=== PATIENT | male | born 1945 | race Caucasian/White ===

== ENCOUNTER 2017-11-19 04:45 | Emergency (ER) | payer MEDICARE ==
--- NOTE | 2017-11-19 05:09 | ED ---
Dizziness - HPI Summary HPI Summary: This is scribe Eugenia Irving documenting for attending Dr. Antwon Steven MD. The patient is a 72 year old male presenting to the ED with complaints of dizziness that started yesterday morning at 0600. Going from vertical to horizontal is very hard for the patient, he explains by saying that there are a good five seconds where the room is completely spinning and he feels nauseous. He had meclizine left over from some vertigo about 2 years ago, it did nothing, got a new Rx from his doctor for it, took one at 0700 and 0300 this morning, and they did not work. Presently, he says he notices the dizziness but it only gets worse when he changes positions. PMHx heart problems, started Tx for HTN, last blood count was 09/16/17, taking metformin. I, Dr. Steven, personally performed the services described in this documentation as scribed in my presence and it is both accurate and complete. - History Of Current Complaint Chief Complaint: EDDizziness Stated Complaint: DIZZINESS Time Seen by Provider: 11/19/17 05:01 Hx Obtained From: Patient Onset/Duration: Still Present Timing: Intermittent Episode Lasting - 5-10 seconds Severity Initially: Severe - upon episode Severity Currently: Severe - upon episode Character: Room Spinning Aggravating Factor(s): Position Change - erect to supine, Change In Head Position Alleviating Factor(s): Other - keeping head vertical Associated Signs And Symptoms: Positive: Nausea. Negative: Vomiting, Unsteady Gait - Allergies/Home Medications Allergies/Adverse Reactions: Allergies Allergy/AdvReac Type Severity Reaction Status Date / Time atorvastatin Allergy Rash Verified 11/19/17 04:52 PMH/Surg Hx/FS Hx/Imm Hx Previously Healthy: No Endocrine/Hematology History: Denies: Hx Diabetes Cardiovascular History: Reports: Hx Coronary Artery Disease, Hx Hypertension - ON MEDICATION FOR, Other Cardiovascular Problems/Disorders - ATRIAL FLUTTER A FEW YEARS AGO Denies: Hx Pacemaker/ICD History: Denies: Hx Renal Disease Musculoskeletal History: Reports: Hx Arthritis - NECK Sensory History: Reports: Hx Contacts or Glasses - GLASSES Denies: Hx Hearing Aid Opthamlomology History: Reports: Hx Contacts or Glasses - GLASSES Neurological History: Reports: Other Neuro Impairments/Disorders - episodes of vertigo 2 years ago Psychiatric History: Denies: Hx Panic Disorder - Surgical History Surgery Procedure, Year, and Place: CSP - LAMINECTOMY -C6-7 ( [facility] – [place]). Rt FOOT - [facility] ACCIDENT. CARDIAC CATH - NO STENTS Hx Anesthesia Reactions: No Infectious Disease History: Yes Infectious Disease History: Denies: Traveled Outside the [place] in Last 30 Days - Family History Known Family History: Positive: Cardiac Disease - father Negative: Hypertension, Diabetes - Social History Occupation: Retired Lives: With Family Alcohol Use: Occasionally Alcohol Amount: 2-3 GLASSES WINE/DAY Substance Use Type: Reports: None Smoking Status (MU): Former Smoker Amount Used/How Often: 1 PPD X 10 YEARS Length of Time of Smoking/Using Tobacco: 10 YRS Have You Smoked in the Last Year: No Review of Systems Negative: Fever Positive: Nausea. Negative: Vomiting Neurological: Other - dizziness All Other Systems Reviewed And Are Negative: Yes Physical Exam - Summary Physical Exam Summary: Appearance: Well-appearing, Well-nourished, lying in bed comfortable, no ataxia Skin: Warm, dry, no obvious rash Eyes: sclera anicteric, no conjunctival pallor, no nystagmus, EOMI ENT: mucous membranes moist Neck: deferred Respiratory: No signs of respiratory distress Cardiovascular: Appears well perfused, pulses are nml Abdomen: deferred Musculoskeletal: Moving all 4 extremities without obvious discomfort Neurological: Awake and alert, mentation is normal, speech is fluent and appropriate, test of skew is nml, nml Rhomberg test Psychiatric: affect is normal, does not appear anxious or depressed Triage Information Reviewed: Yes Vital Signs On Initial Exam: Initial Vitals Temp Pulse Resp BP Pulse Ox 98.3 F 67 16 159/83 97 11/19/17 04:50 11/19/17 04:50 11/19/17 04:50 11/19/17 04:50 11/19/17 04:50 Vital Signs Reviewed: Yes Diagnostics - Vital Signs Vital Signs Temp Pulse Resp BP Pulse Ox 11/19/17 04:50 98.3 F 67 16 159/83 97 - Laboratory Lab Statement: Any lab studies that have been ordered have been reviewed, and results considered in the medical decision making process. Dizzy Course/Dx - Course Course Of Treatment: This is a 72-year-old man with acute vertigo. His history and physical are not consistent with a central cause of his vertigo. He has had this before. His symptoms were reproduced primarily by laying down and turning the head to the right, so Wilberto maneuver was performed with that in mind - Diagnoses Provider Diagnoses: Benign positional vertigo Discharge - Sign-Out/Discharge Documenting (check all that apply): Patient Departure - DC - Discharge Plan Condition: Fair Disposition: HOME Prescriptions: Prochlorperazine TAB* [Compazine Tab*] 10 mg PO Q8H PRN #14 tab PRN Reason: Dizziness Patient Education Materials: Benign Paroxysmal Positional Vertigo (ED) Referrals: Morris Christie MD [Primary Care Provider] - - Billing Disposition and Condition Condition: FAIR Disposition: Home
[2017-11-19] MEDS ORDERED: Prochlorperazine TAB* 10 MG PO ONE (05:20)
--- OUTSIDE RECORDS SUMMARY | 2017-11-19 05:21 | XMS REPORT ---
:1945 External Reference #:[id number] Author Organization [facility] Address [address] [place] [address] Phone [phone] Care Team Providers Name Role Phone Miranda Wolff Primary Care Physician Unavailable Payers Type Date Identification Numbers Payment Provider Subscriber Commercial Effective: Policy Number: [employer] George Birminghamter 2012 [id number] [employer] PayID: [id number] [address] [address] CH[place] Jason [id number] Medigap Part B Effective: Policy Number: [facility] George Birminghamter 2009 [id number] Expires: 2012 Group Name: BC/[place] [address] [address] PayID: [id number] CHAVA Jason [id number] Commercial Effective: Policy Number: [employer] George Birminghamter 2012 [id number] [employer] Expires: 2012 Group Number: [id number] [address] [address] PayID: [id number] CHAVA Jason [id number] Medigap Part B Expires: 2009 Policy Number: [facility] George Birminghamter [id number] Group Number: [id number] [address] [address] Group Name: BC/BS of [place] [id number] PayID: [id number] Problems Date Description Provider Status Onset: 09/18/2001 Gout Rupert SinclairNRennyPRennyCRenny Active Onset: 09/18/2001 Pure hypercholesterolemia Markos SinclairPHaroldo Active Onset: 09/18/2001 Benign secondary hypertension Manuel Sinclair Active Onset: 09/18/2001 Disorder of back Manuel Sinclair Active Onset: 02/24/2015 Hyperlipidemia Miranda Wolff, [employer] Active Family History Date Family Member(s) Problem(s) Comments : (2007) Father due to (age 81 Years) arrhythmia Father Heart Disease CONGENITAL HEART PROBLEMS, CORONARY HEART DISEASE WITH BYPASS. DEFIBRILLATOR AND PACEMAKER Mother Gallstones CHOLECYSTECTOMY 1996 Mother Alzheimer's Disease Maternal Grandfather Cancer, Colon : (age Maternal Grandfather due to MA 75 Years) Social History Type Date Description Comments Education Highest Level Completed associate degree Marital Status Lives With Alone Home Environment heating.apartments.natural gas Home Environment , hot water baseboard. 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 ETOH Use Rarely consumes alcohol Smoking Patient is a former smoker Allergies, Adverse Reactions, Alerts Date Description Reaction Status Severity Comments 06/28/2014 Generic Lipitor rash active Medications Medication Date Status Form Strength Qnty SIG Indications Ordering Provider Metformin HCL ER 08/05 Active Tablets 1000mg 90tab 1 tab by E11.9 Morris (Mod) ER 24HR s mouth every [place], day in in MD the morning Metoprolol 01/03 Active Tablets 100mg 60tab Take One Morris Tartrate s Tablet By Deisy Christie Twice MD A Day Instead Of Atenolol Dilt-XR 06/21 Active Caps ER 180mg 90cap Take One Betty 24HR s Capsule By Deisy Aquino Every M.D., R.D. Day Nitrostat 02/24 Active Tablets 0.4mg 30tab 1 tab Sub s sublingual Jason, as needed [employer] for chest pain Pravastatin 06/28 Active Tablets 40mg 90tab Take One E78.5 Miranda Sodium s Tablet By Jason, Mouth AT [employer] Bedtime Meclizine HCL 04/23 Active Tablets 25mg 30tab 1 tablet H81.10 Miranda s three times Jason, a day as [employer] needed dizziness Aspirin 06/25 Active Tablets 81mg 100ta one po qd to 427.9 bs prevent K.W. heart attack Timothy, and stroke Joes Allopurinol 09/18 Active Tablets 300mg 90tab Take One Morris s Tablet By Shahnaz Mouth Every MD Day Altace Active Capsules 5mg 90cap take one Morris / s capsule by Shahnaz, mouth every MD day Benzonatate 01/12 Hx Capsules 100mg 30cap take 1 or 2 R05 Miranda s capsules by Jason, - mouth three [employer] 03/16 times a day as needed for coughing Metformin HCL 01/12 Hx Tablets 500mg 60tab Take One E11.9 Miranda s Tablet By Jason, - Mouth Twice [employer] 08/05 A /2017 Hydrocodone-Acet 09/21 Hx Tablets 5-325mg 30tab 1 by mouth Miranda aminophen s q4 - 6 hours Jason, - as needed [employer] 12/17 Cyclobenzaprine 09/21 Hx Tablets 5mg 30tab 1-2 by mouth M54.5 Miranda HCL /2015 s three times Jason, - a day for [employer] 12/17 muscle spasm, may cause drowsiness Lidocaine 09/21 Hx Patches 5% 10uni apply patch M54.5 Miranda ts to skin on Jason, - shoulder for [employer] 12/17 12 hours then remove for 12 hours. Polymyxin B 08/19 Hx Solution 48734-3.1 10ml 1gtt in both H10.89 Miranda Sulfate/Trimetho Unit/ML-% eyes every 4 Jason, prim Sulfate - hours while [employer] 09/21 awake more than 6 doses/day Cephalexin 08/19 Hx Tablets 500mg 14tab take 1 R05 s tablet by Jason, - mouth twice [employer] 09/21 a day x days Guaifenesin-Code 03/14 Hx Syrup 100-10mg/ 240ml 1-2 teaspoon R05 5ML every 4-6 Jason, - hours as [employer] 09/21 needed Xanax 05/09 Hx Tablets 0.5mg 20twe 1/2-1 tab by 724.5 nty mouth q hs Jason, - prn insomnia [facility] 12/17 Cephalexin 05/09 Hx Tablets 500mg 14tab take 1 682.2 s tablet by Jason, - mouth twice [facility] 02/24 a day x days Gabapentin 05/09 Hx Capsules 100mg 30cap Take One 724.5 s Capsule By Jason, - Mouth AT [facility] 02/24 Bedtime Hydrocodone-Acet 02/11 Hx Tablets 5-325mg 20twe 1 po hs prn 723.1 Miranda amino nty pain Wilmer Wolff [facility] 02/24 Diltiazem HCL ER 09/24 Hx Caps ER 180mg 90cap 1 by mouth 24HR s every day Wilmer Aquino M.D., R.D. 06/21 Nitrostat 03/06 Hx Tablets 0.4mg 50tab Place One Sub s Tablet Under K.W. - The Tongue Timothy, 12/17 Every 5 M.D. /2016 Minutes For Up To 3 Doses as Needed For Chest Pain. If Chest Pain Still Persists Co Hydrocodone/Acet 09/08 Hx Tablets 5-325mg 20twe 1-2 po q6 723.1 Miranda aminophen nty hrs prn pain Wilmer Wolff [facility] 02/11 Viagra 04/12 Hx Tablets 100mg 2SG take one 414.01 half (04/12) Kenia, - tablet(s) Jose, R.D. 02/24 by mouth /2014 before intercourse Meclizine HCL 12/12 Hx Tablets 25mg 30tab 1 tablet tid 386.11 Miranda s prn Jason, - dizziness [facility] 04/12 Hydrocodone/Acet 06/13 Hx Tablets 5-325mg 20twe 1-2 po q6 723.1 Joselyn aminophen nty hrs prn pain K.W. - Timothy, 06/13 M.D. Cyclobenzaprine 06/13 Hx Tablets 5mg 30tab 1-2 po tid 723.1 Miranda HCL s for muscle Jason, - spasm, august [facility] 04/12 drowsiness Valacyclovir HCL 04/24 Hx Tablets 500mg 50tab 1 tabs po 053.29 Daina s every 8 Green, - hours for7 PATHOLOGY TECHNICIAN Zovirax 04/24 Hx Cream 5% 2gram apply to 053.29 s affected Green, - area 3 times PATHOLOGY TECHNICIAN 02/24 a day for days Percocet 08/05 Hx Tablets 7.5-325M 50tab one to two 723.1 s po qid prn K.W. - severe pain Timothy, 11/25 M.D. Zithromax Z-Gavin 03/13 Hx Tablets 250mg 6tabs Two PO qd 786.2 Today And K.W. - Then One PO Timothy, 06/25 qd For 4 M.D. /2008 Days Claritin-D 12 03/13 Hx Tablets 5-120mg 60tab one po bid 786.2 ER 12HR s prn cough, K.W. - post nasal Timothy, 06/25 drip M.D. Lipitor 01/17 Hx Tablets 40mg 90tab Take One Miranda s Tablet By Jason, - Mouth AT [facility] 02/24 Bedtime And /2014 Recheck Cholesterol Profile Every 6 Months Atenolol 11/03 Hx Tablets 100mg 90tab Take One Miranda s Tablet By Jason, - Mouth Every [facility] /2016 Nitroglycerin SL 05/15 Hx 0.4mg 50uni one sl q 5 I20.9 ts min x 3 prn K.W. - chest pain Timothy, 02/24 M.D. Elocon 05/15 Hx 0.1% 15g Apply Thin 709.9 Film Once K.W. - Daily For Up Timothy, 11/02 To 2 Weeks, M.D. Then Twice Per Week as Needed Lipitor 09/18 Hx Tablets 20mg 45tab one and one s half qd K.W. - Timothy, 01/17 M.D. Atenolol 09/18 Hx 50mg 60uni one po bid ts K.W. - Timothy, 11/03 M.D. Diltiazem CD 09/18 Hx Caps ER 180mg 90cap take one 24HR s capsule by Derrick Umanzor, - mouth every M.D. Immunizations CPT Code Status Date Vaccine Lot # [id number] Given 02/24/2015 Prevnar-13 Pneumococcal Conjugate Vaccine [id number] 64636 Given 02/24/2015 Influenza Vaccine High Dose PF [id number] 60243 Given 06/13/2012 Zoster Vaccine [id number] 15846 Given 04/12/2012 Pneumovax 23 (PPSV23) 65+ years or high risk 2 to [id number] 66 year old [address] Refused 12/17/2016 Influenza Virus Vaccine, Quadrivalent, 3 Yr > Quad , Preserv Free Vital Signs Date Vital Result Comment 11/04/2017 Weight 205.00 lb Weight in kg's 92.988 BP Systolic 100 mmHg BP Diastolic 70 mmHg Heart Rate 56 /min Body Temperature 97.1 F Respiratory Rate 16 /min 08/05/2017 Weight 208.00 lb Weight in kg's 94.349 BP Systolic 124 mmHg BP Diastolic 74 mmHg Heart Rate 52 /min Body Temperature 96.1 F Respiratory Rate 18 /min O2 % BldC Oximetry 99 % 05/05/2017 Weight 205.00 lb Weight in kg's 92.988 BP Systolic 120 mmHg BP Diastolic 62 mmHg Heart Rate 52 /min Body Temperature 97.3 F Respiratory Rate 16 /min O2 % BldC Oximetry 98 % 03/16/2017 Weight 200.00 lb Weight in kg's 90.720 BP Systolic 110 mmHg BP Diastolic 68 mmHg Heart Rate 52 /min Body Temperature 96.9 F Height 68 inches 5'8" BMI (Body Mass Index) 30.4 kg/m2 O2 % BldC Oximetry 97 % 01/12/2017 Weight 209.00 lb Weight in kg's 94.802 BP Systolic 110 mmHg BP Diastolic 68 mmHg Heart Rate 64 /min Body Temperature 97.3 F Respiratory Rate 16 /min 12/17/2016 Weight 209.00 lb Weight in kg's 94.802 BP Systolic 124 mmHg BP Diastolic 76 mmHg Heart Rate 50 /min Body Temperature 97.6 F Respiratory Rate 16 /min O2 % BldC Oximetry 98 % 09/22/2015 Weight 211.00 lb Weight in kg's 95.710 BP Systolic 160 mmHg BP Diastolic 80 mmHg Heart Rate 52 /min 08/20/2015 Weight 216.00 lb Weight in kg's 97.978 BP Systolic 140 mmHg BP Diastolic 80 mmHg Heart Rate 50 /min Body Temperature 97.4 F O2 % BldC Oximetry 96 % on Ra 07/29/2015 Weight 210.00 lb Weight in kg's 95.256 BP Systolic 130 mmHg BP Diastolic 80 mmHg Heart Rate 52 /min Body Temperature 98.2 F O2 % BldC Oximetry 98 % 03/14/2015 Weight 210.00 lb Weight in kg's 95.256 BP Systolic 120 mmHg BP Diastolic 68 mmHg Heart Rate 68 /min Body Temperature 97.5 F 02/24/2015 Weight 210.00 lb Weight in kg's 95.256 BP Systolic 106 mmHg BP Diastolic 62 mmHg Heart Rate 72 /min Height 69 inches 5'9" BMI (Body Mass Index) 31.0 kg/m2 06/28/2014 Weight 212.00 lb Weight in kg's 96.163 BP Systolic 100 mmHg BP Diastolic 60 mmHg Heart Rate 52 /min 05/09/2014 Weight 212.00 lb Weight in kg's 96.163 BP Systolic 132 mmHg BP Diastolic 72 mmHg Heart Rate 60 /min Body Temperature 97.1 F 02/11/2014 Weight 217.00 lb Weight in kg's 98.431 BP Systolic 130 mmHg BP Diastolic 64 mmHg Heart Rate 56 /min 11/06/2013 Weight 219.00 lb Weight in kg's 99.338 BP Systolic 140 mmHg BP Diastolic 70 mmHg Heart Rate 52 /min O2 % BldC Oximetry 98 % 04/23/2013 Weight 218.00 lb Weight in kg's 98.885 BP Systolic 128 mmHg BP Diastolic 68 mmHg Heart Rate 58 /min Body Temperature 97.1 F O2 % BldC Oximetry 98 % 10/20/2012 Weight 199.00 lb Weight in kg's 90.266 BP Systolic 106 mmHg BP Diastolic 80 mmHg Heart Rate 60 /min Body Temperature 97.3 F 06/13/2012 Weight 194.00 lb Weight in kg's 87.998 BP Systolic 104 mmHg BP Diastolic 64 mmHg Heart Rate 52 /min Height 69 inches 5'9" BMI (Body Mass Index) 28.6 kg/m2 Right Visual Acuity Distance 20/50 Left Visual Acuity Distance 20/50 Both Visual Acuity Distance 20/40 04/12/2012 Weight 211.00 lb Weight in kg's 95.710 BP Systolic 102 mmHg BP Diastolic 70 mmHg Heart Rate 50 /min 03/22/2012 Weight 215.00 lb Weight in kg's 97.524 BP Systolic 122 mmHg BP Diastolic 84 mmHg Heart Rate 56 /min Body Temperature 96.3 F 11/15/2011 Weight 215.00 lb Weight in kg's 97.524 BP Systolic 140 mmHg BP Diastolic 80 mmHg Heart Rate 60 /min 06/14/2011 Weight 216.00 lb Weight in kg's 97.978 BP Systolic 124 mmHg BP Diastolic 64 mmHg Heart Rate 44 /min Body Temperature 98.0 F 06/04/2011 Weight 224.00 lb Weight in kg's 101.606 BP Systolic 132 mmHg BP Diastolic 60 mmHg Heart Rate 60 /min Body Temperature 98.0 F 04/24/2010 Weight 220.00 lb Weight in kg's 99.792 BP Systolic 122 mmHg BP Diastolic 72 mmHg Heart Rate 52 /min Body Temperature 95.7 F 11/25/2008 Weight 220.00 lb Weight in kg's 99.792 BP Systolic 124 mmHg BP Diastolic 70 mmHg Heart Rate 60 /min 08/05/2008 Weight 218.00 lb Weight in kg's 98.885 BP Systolic 132 mmHg BP Diastolic 60 mmHg Heart Rate 60 /min 06/25/2008 Weight 218.00 lb Weight in kg's 98.885 BP Systolic 118 mmHg BP Diastolic 66 mmHg Heart Rate 52 /min Height 69.25 inches 5'9.25" BMI (Body Mass Index) 32.0 kg/m2 03/13/2008 Weight 219.00 lb Weight in kg's 99.338 BP Systolic 108 mmHg BP Diastolic 60 mmHg Heart Rate 56 /min Body Temperature 97.1 F Oral Height 69.5 inches 5'9.50" BMI (Body Mass Index) 31.9 kg/m2 06/08/2006 Weight 223.00 lb Weight in kg's 101.153 BP Systolic 130 mmHg BP Diastolic 68 mmHg Heart Rate 68 /min Height 69.5 inches 5'9.50" BMI (Body Mass Index) 32.5 kg/m2 05/31/2006 BP Systolic 130 mmHg BP Diastolic 68 mmHg Heart Rate 64 /min Body Temperature 97.9 F Oral Height 69.5 inches 5'9.50" 05/23/2006 Weight 219.50 lb Weight in kg's 99.565 BP Systolic 110 mmHg BP Diastolic 68 mmHg Heart Rate 64 /min Height 69.5 inches 5'9.50" BMI (Body Mass Index) 31.9 kg/m2 02/23/2005 Weight 217.00 lb Weight in kg's 98.431 BP Systolic 120 mmHg BP Diastolic 80 mmHg Heart Rate 54 /min Height 68.25 inches 5'8.25" BMI (Body Mass Index) 32.7 kg/m2 06/09/2004 Weight 218.00 lb Weight in kg's 98.885 BP Systolic 128 mmHg BP Diastolic 72 mmHg Heart Rate 64 /min 11/04/2003 Weight 210.00 lb Weight in kg's 95.256 BP Systolic 132 mmHg BP Diastolic 73 mmHg Heart Rate 63 /min 03/19/2003 Weight 220.00 lb Weight in kg's 99.792 BP Systolic 120 mmHg BP Diastolic 62 mmHg Heart Rate 56 /min 11/20/2002 Weight 214.00 lb Weight in kg's 97.070 BP Systolic 110 mmHg BP Diastolic 70 mmHg Heart Rate 58 /min Height 70 inches BMI (Body Mass Index) 30.7 kg/m2 11/02/2002 Weight 215.00 lb Weight in kg's 97.524 BP Systolic 138 mmHg BP Diastolic 76 mmHg Heart Rate 62 /min 05/15/2002 Weight 223.00 lb Weight in kg's 101.2 BP Systolic 132 mmHg BP Diastolic 80 mmHg Heart Rate 64 /min Respiratory Rate 18 /min Height 69 inches BMI (Body Mass Index) 32.9 kg/m2 09/18/2001 Weight 214.00 lb BP Systolic 150 mmHg BP Diastolic 80 mmHg Heart Rate 80 /min Respiratory Rate 18 /min Results Test Date Test Result H/L Range Note Laboratory test 10/26/2017 Hemoglobin A1c (Glyco 6.8 % High 4.0-5.6 1 finding HGB) Lipid Profile 10/26/2017 Triglycerides 89 mg/dL 2 (Trig/Chol/HDL) Cholesterol 156 mg/dL 3 HDL Cholesterol 40.3 mg/dL 4 LDL Cholesterol 98 mg/dL 5 CBC Auto Diff 10/26/2017 White Blood Count 8.3 10^3/uL 3.5-10.8 Red Blood Count 4.47 10^6/uL 4.00-5.40 Hemoglobin 13.6 g/dL Low 14.0-18.0 Hematocrit 39 % Low 42-52 Mean Corpuscular Volume 87 fL 80-94 Mean Corpuscular Hemoglobin 30 pg 27-31 Mean Corpuscular HGB Conc 35 g/dL 31-36 Red Cell Distribution Width 14 % 10.5-15 Platelet Count 217 10^3/uL 150-450 Mean Platelet Volume 7.4 um3 7.4-10.4 Abs Neutrophils 5.1 10^3/uL 1.5-7.7 Abs Lymphocytes 2.4 10^3/uL 1.0-4.8 Abs Monocytes 0.6 10^3/uL 0-0.8 Abs Eosinophils 0.1 10^3/uL 0-0.6 Abs Basophils 0.1 10^3/uL 0-0.2 Abs Nucleated RBC 0 10^3/uL Granulocyte % 61.1 % 38-83 Lymphocyte % 28.7 % 25-47 Monocyte % 7.6 % High 0-7 Eosinophil % 1.7 % 0-6 Basophil % 0.9 % 0-2 Nucleated Red Blood Cells % 0.1 Comp Metabolic Panel 10/26/2017 Sodium 138 mmol/L 135-145 Potassium 4.6 mmol/L 3.5-5.0 Chloride 104 mmol/L 101-111 Co2 Carbon Dioxide 26 mmol/L 22-32 Anion Gap 8 mmol/L 2-11 Glucose 138 mg/dL High 70-100 Blood Urea Nitrogen 18 mg/dL 6-24 Creatinine 1.02 mg/dL 0.67-1.17 BUN/Creatinine Ratio 17.6 8-20 Calcium 9.3 mg/dL 8.6-10.3 Total Protein 6.9 g/dL 6.4-8.9 Albumin 4.5 g/dL 3.2-5.2 Globulin 2.4 g/dL 2-4 Albumin/Globulin Ratio 1.9 1-3 Total Bilirubin 0.50 mg/dL 0.2-1.0 Alkaline Phosphatase 51 U/L 34-104 Alt 16 U/L 7-52 Ast 13 U/L 13-39 Egfr Non- 72.2 >60 Egfr 87.4 >60 6 CBC Auto Diff 07/29/2017 White Blood Count 8.7 10^3/uL 3.5-10.8 Red Blood Count 4.57 10^6/uL 4.0-5.4 Hemoglobin 13.9 g/dL Low 14.0-18.0 Hematocrit 40 % Low 42-52 Mean Corpuscular Volume 87 fL 80-94 Mean Corpuscular Hemoglobin 30 pg 27-31 Mean Corpuscular HGB Conc 35 g/dL 31-36 Red Cell Distribution Width 14 % 10.5-15 Platelet Count 217 10^3/uL 150-450 Mean Platelet Volume 7.5 um3 7.4-10.4 Abs Neutrophils 5.2 10^3/uL 1.5-7.7 Abs Lymphocytes 2.7 10^3/uL 1.0-4.8 Abs Monocytes 0.6 10^3/uL 0-0.8 Abs Eosinophils 0.2 10^3/uL 0-0.6 Abs Basophils 0.1 10^3/uL 0-0.2 Abs Nucleated RBC 0 10^3/uL Granulocyte % 59.1 % 38-83 Lymphocyte % 30.9 % 25-47 Monocyte % 7.2 % High 0-7 Eosinophil % 1.8 % 0-6 Basophil % 1.0 % 0-2 Nucleated Red Blood Cells % 0.2 Comp Metabolic Panel 07/29/2017 Sodium 138 mmol/L Low 139-145 Potassium 4.4 mmol/L 3.5-5.0 Chloride 105 mmol/L 101-111 Co2 Carbon Dioxide 26 mmol/L 22-32 Anion Gap 7 mmol/L 2-11 Glucose 158 mg/dL High 70-100 Blood Urea Nitrogen 19 mg/dL 6-24 Creatinine 1.02 mg/dL 0.67-1.17 BUN/Creatinine Ratio 18.6 8-20 Calcium 9.2 mg/dL 8.6-10.3 Total Protein 6.7 g/dL 6.4-8.9 Albumin 4.2 g/dL 3.2-5.2 Globulin 2.5 g/dL 2-4 Albumin/Globulin Ratio 1.7 1-3 Total Bilirubin 0.40 mg/dL 0.2-1.0 Alkaline Phosphatase 48 U/L 34-104 Alt 17 U/L 7-52 Ast 13 U/L 13-39 Egfr Non- 72.2 >60 Egfr 92.9 >60 7 Lipid Profile (Trig/Chol/HDL) 07/29/2017 Triglycerides 88 mg/dL 8 Cholesterol 153 mg/dL 9 HDL Cholesterol 40.8 mg/dL 10 LDL Cholesterol 95 mg/dL 11 Laboratory test finding 07/29/2017 Hemoglobin A1c (Glyco 7.1 % High 4.0- 5.6 12 HGB) Laboratory test finding 03/11/2017 Hemoglobin A1c (Glyco 6.6 % High 4.0- 5.6 13 HGB) Lipid Profile 03/11/2017 Triglycerides 102 mg/dL 14 (Trig/Chol/HDL) Cholesterol 166 mg/dL 15 HDL Cholesterol 40.8 mg/dL 16 LDL Cholesterol 105 mg/dL 17 Comp Metabolic Panel 03/11/2017 Sodium 135 mmol/L 133-145 Potassium 4.2 mmol/L 3.5-5.0 Chloride 103 mmol/L 101-111 Co2 Carbon Dioxide 27 mmol/L 22-32 Anion Gap 5 mmol/L 2-11 Glucose 148 mg/dL High 70-100 Blood Urea Nitrogen 15 mg/dL 6-24 Creatinine 1.01 mg/dL 0.67-1.17 BUN/Creatinine Ratio 14.9 8-20 Calcium 8.9 mg/dL 8.6-10.3 Total Protein 7.0 g/dL 6.4-8.9 Albumin 4.4 g/dL 3.2-5.2 Globulin 2.6 g/dL 2-4 Albumin/Globulin Ratio 1.7 1-3 Total Bilirubin 0.60 mg/dL 0.2-1.0 Alkaline Phosphatase 51 U/L 34-104 Alt 17 U/L 7-52 Ast 16 U/L 13-39 Egfr Non- 73.0 >60 Egfr 93.9 >60 18 CBC Auto Diff 03/11/2017 White Blood Count 10.3 10^3/uL 3.5-10.8 Red Blood Count 4.65 10^6/uL 4.0-5.4 Hemoglobin 13.7 g/dL Low 14.0-18.0 Hematocrit 41 % Low 42-52 Mean Corpuscular Volume 87 fL 80-94 Mean Corpuscular Hemoglobin 30 pg 27-31 Mean Corpuscular HGB Conc 34 g/dL 31-36 Red Cell Distribution Width 14 % 10.5-15 Platelet Count 241 10^3/uL 150-450 Mean Platelet Volume 8 um3 7.4-10.4 Abs Neutrophils 6.4 10^3/uL 1.5-7.7 Abs Lymphocytes 2.9 10^3/uL 1.0-4.8 Abs Monocytes 0.7 10^3/uL 0-0.8 Abs Eosinophils 0.2 10^3/uL 0-0.6 Abs Basophils 0.1 10^3/uL 0-0.2 Abs Nucleated RBC 0.01 10^3/uL Granulocyte % 62.3 % 38-83 Lymphocyte % 28.4 % 25-47 Monocyte % 6.8 % 1-9 Eosinophil % 1.5 % 0-6 Basophil % 1.0 % 0-2 Nucleated Red Blood Cells % 0.1 Urine DIP 12/17/2016 Leukocytes neg Neg Urine Nitrites neg Neg Urobilinogen norm Norm Total Protein, Urine trace Neg Urine pH 5.0 5-6 Urine Blood neg Neg Specific [place] 1.020 1.01-1.02 Urine Ketones trace Neg Urine Bilirubin neg Neg Urine Glucose 250 High Norm CBC Auto Diff 12/17/2016 White Blood Count 11.4 10^3/uL High 3.5-10.8 Red Blood Count 4.95 10^6/uL 4.0-5.4 Hemoglobin 14.7 g/dL 14.0-18.0 Hematocrit 43 % 42-52 Mean Corpuscular Volume 86 fL 80-94 Mean Corpuscular Hemoglobin 30 pg 27-31 Mean Corpuscular HGB Conc 34 g/dL 31-36 Red Cell Distribution Width 14 % 10.5-15 Platelet Count 246 10^3/uL 150-450 Mean Platelet Volume 8 um3 7.4-10.4 Abs Neutrophils 7.2 10^3/uL 1.5-7.7 Abs Lymphocytes 3.0 10^3/uL 1.0-4.8 Abs Monocytes 1.0 10^3/uL High 0-0.8 Abs Eosinophils 0.2 10^3/uL 0-0.6 Abs Basophils 0.1 10^3/uL 0-0.2 Abs Nucleated RBC 0.01 10^3/uL Granulocyte % 62.7 % 38-83 Lymphocyte % 26.1 % 25-47 Monocyte % 8.4 % 1-9 Eosinophil % 2.2 % 0-6 Basophil % 0.6 % 0-2 Nucleated Red Blood Cells % 0.1 Comp Metabolic Panel 12/17/2016 Sodium 134 mmol/L 133-145 Potassium 4.8 mmol/L 3.5-5.0 Chloride 102 mmol/L 101-111 Co2 Carbon Dioxide 25 mmol/L 22-32 Anion Gap 7 mmol/L 2-11 Glucose 185 mg/dL High 70-100 Blood Urea Nitrogen 21 mg/dL 6-24 Creatinine 1.04 mg/dL 0.67-1.17 BUN/Creatinine Ratio 20.2 High 8-20 Calcium 9.3 mg/dL 8.6-10.3 Total Protein 7.4 g/dL 6.4-8.9 Albumin 4.5 g/dL 3.2-5.2 Globulin 2.9 g/dL 2-4 Albumin/Globulin Ratio 1.6 1-3 Total Bilirubin 0.60 mg/dL 0.2-1.0 Alkaline Phosphatase 58 U/L 34-104 Alt 23 U/L 7-52 Ast 19 U/L 13-39 Egfr Non- 70.8 >60 Egfr 91.1 >60 19 Laboratory test 12/17/2016 Hemoglobin A1c (Glyco 7.9 % High Less than 6.0 20 finding HGB) Lipid Profile 12/17/2016 Triglycerides 117 mg/dL 21 (Trig/Chol/HDL) Cholesterol 181 mg/dL 22 HDL Cholesterol 43.4 mg/dL 23 LDL Cholesterol 114 mg/dL 24 Laboratory test finding 12/17/2016 Hepatitis C Antibody Nonreactive Nonreactive 25 PSA Screening 2.553 ng/mL 0-4.000 26 Urine Microalbumin Random 12/17/2016 Urine Creatinine 219.95 mg/dL Ur Microalbumin (mg/L) 55.4 mg/L Urine Microalbumin/Creatinine 25.1 ug/mg <31 CBC Auto Diff 07/29/2015 White Blood Count 11.4 10^3/uL High 3.5-10.8 Red Blood Count 4.81 10^6/uL 4.0-5.4 Hemoglobin 14.2 g/dL 14.0-18.0 Hematocrit 42 % 42-52 Mean Corpuscular Volume 88 fL 80-94 Mean Corpuscular Hemoglobin 30 pg 27-31 Mean Corpuscular HGB Conc 34 g/dL 31-36 Red Cell Distribution Width 14 % 10.5-15 Platelet Count 233 10^3/uL 150-450 Mean Platelet Volume 8 um3 7.4-10.4 Abs Neutrophils 7.4 10^3/uL 1.5-7.7 Abs Lymphocytes 3.0 10^3/uL 1.0-4.8 Abs Monocytes 0.8 10^3/uL 0-0.8 Abs Eosinophils 0.2 10^3/uL 0-0.6 Abs Basophils 0.1 10^3/uL 0-0.2 Abs Nucleated RBC 0.02 10^3/uL Granulocyte % 64.4 % 38-83 Lymphocyte % 26.0 % 25-47 Monocyte % 6.8 % 1-9 Eosinophil % 1.8 % 0-6 Basophil % 1.0 % 0-2 Nucleated Red Blood Cells % 0.2 Comp Metabolic Panel 07/29/2015 Sodium 137 mmol/L 133-145 Potassium 4.2 mmol/L 3.5-5.0 Chloride 104 mmol/L 101-111 Co2 Carbon Dioxide 27 mmol/L 22-32 Anion Gap 6 mmol/L 2-11 Glucose 116 mg/dL High 70-100 Blood Urea Nitrogen 18 mg/dL 6-24 Creatinine 0.98 mg/dL 0.67-1.17 BUN/Creatinine Ratio 18.4 8-20 Calcium 9.2 mg/dL 8.6-10.3 Total Protein 7.0 g/dL 6.4-8.9 Albumin 4.6 g/dL 3.2-5.2 Globulin 2.4 g/dL 2-4 Albumin/Globulin Ratio 1.9 1-3 Total Bilirubin 0.70 mg/dL 0.2-1.0 Alkaline Phosphatase 56 U/L 34-104 Alt 20 U/L 7-52 Ast 16 U/L 13-39 Egfr Non- 76.1 >60 Egfr 97.8 >60 27 Laboratory test finding 07/29/2015 TSH (Thyroid Stim Horm) 0.72 ?IU/mL 0.34-5.60 28 Hemoglobin A1c (Glyco HGB) 6.5 % High Less than 6.0 29 Laboratory test finding 02/24/2015 PSA Screening 2.066 ng/mL 0-4.000 30 Lipid Profile (Trig/Chol/HDL) 02/24/2015 Triglycerides 90 mg/dL 31 Cholesterol 151 mg/dL 32 HDL Cholesterol 38.4 mg/dL 33 LDL Cholesterol 95 mg/dL 34 Laboratory test 02/24/2015 Hemoglobin A1c 6.8 % High Less than 6.0 35 finding CBC Auto Diff 01/30/2015 White Blood Count 9.0 10^3/uL 4.8-10.8 Red Blood Count 4.59 10^6/uL 4.0-5.4 Hemoglobin 13.8 g/dL Low 14.0-18.0 Hematocrit 41 % Low 42-52 Mean Corpuscular Volume 89 fL 80-94 Mean Corpuscular Hemoglobin 30 pg 27-31 Mean Corpuscular HGB Conc 34 g/dL 31-36 Red Cell Distribution Width 14 % 10.5-15 Platelet Count 221 10^3/uL 150-450 Mean Platelet Volume 8 um3 7.4-10.4 Abs Neutrophils 6.2 10^3/uL 1.5-7.7 Abs Lymphocytes 1.9 10^3/uL 1.0-4.8 Abs Monocytes 0.8 10^3/uL 0-0.8 Abs Eosinophils 0.1 10^3/uL 0-0.6 Abs Basophils 0.1 10^3/uL 0-0.2 Abs Nucleated RBC 0.02 10^3/uL Granulocyte % 68.3 % 38-83 Lymphocyte % 21.1 % Low 25-47 Monocyte % 8.4 % 1-9 Eosinophil % 1.4 % 0-6 Basophil % 0.8 % 0-2 Nucleated Red Blood Cells % 0.2 Inr/Protime 01/30/2015 Inr 0.93 0.78-1.07 Laboratory test finding 01/30/2015 Partial Thrombo Time 27.3 seconds 26.0 -36.3 PTT B-Type Natriuretic Peptide BNP 41 pg/mL 36 Comp Metabolic Panel 01/30/2015 Sodium 135 mmol/L 133-145 Potassium 4.4 mmol/L 3.5-5.0 Chloride 105 mmol/L 101-111 Co2 Carbon Dioxide 23 mmol/L 22-32 Anion Gap 7 mmol/L 2-11 Glucose 171 mg/dL High 70-100 Blood Urea Nitrogen 18 mg/dL 6-24 Creatinine 0.98 mg/dL 0.67-1.17 BUN/Creatinine Ratio 18.4 8-20 Calcium 9.2 mg/dL 8.6-10.3 Total Protein 7.0 g/dL 6.4-8.9 Albumin 4.2 g/dL 3.2-5.2 Globulin 2.8 g/dL 2-4 Albumin/Globulin Ratio 1.5 1-3 Total Bilirubin 0.50 mg/dL 0.2-1.0 Alkaline Phosphatase 54 U/L 34-104 Alt 20 U/L 7-52 Ast 15 U/L 13-39 Egfr Non- 76.1 >60 Egfr 97.8 >60 37 Laboratory test finding 01/30/2015 Magnesium 1.8 mg/dL Low 1.9-2.7 Lipase 10 U/L Low 11.0-82.0 C Reactive Protein 3.79 mg/L < 5.00 38 Troponin I 0.00 ng/mL <0.03 39 TSH (Thyroid Stimulating Horm) 1.02 ?IU/mL 0.34-5.60 Urine DIP 06/13/2012 Leukocytes NEG Neg Urine Nitrites NEG Neg Urine pH 5 5-6 Total Protein, Urine NEG Neg Urine Glucose NORM Norm Urine Ketones SMALL Neg Urobilinogen NORM Norm Urine Bilirubin NEG Neg Urine Blood TRACE Neg Specific [place] 1.02 1.01-1.02 Laboratory test finding 06/12/2012 Hemoglobin A1c 5.4 % Less than 6.0 40 Statin 06/12/2012 Ast 18 U/L 12-42 41 Alt 20 U/L 14-54 42 Lipid Profile (Trig/Chol/HDL) 06/12/2012 Triglycerides 52 mg/dL 40-200 Cholesterol 111 mg/dL Less than 200 HDL Cholesterol 48 mg/dL 40-60 43 Cholesterol/HDL Ratio 2.3 Average 1-4.44 LDL Cholesterol 52.6 mg/dL Less Than 100 44 Basic Metabolic Panel 06/12/2012 Sodium 139 mmol/L 133-145 Potassium 3.8 mmol/L 3.5-5.0 Chloride 108 mmol/L 101-111 Co2 Carbon Dioxide 25.0 mmol/L 22-32 Anion Gap 6.0 mmol/L 2-11 Glucose 107 mg/dL High 70-100 Blood Urea Nitrogen 15 mg/dL 6-24 Creatinine 0.80 mg/dL 0.50-1.40 BUN/Creatinine Ratio 18.8 8-20 Calcium 8.9 mg/dL 8.1-9.9 Egfr Non- 97.0 >60 Egfr 124.8 >60 45 Laboratory test finding 06/12/2012 PSA Screening 2.1 ng/mL 0-4.0 46 Urine Microalbumin Random 04/12/2012 Ur Microalbumin (Mg/L) 17.0 mg/L 47 Urine Creatinine 118.2 mg/dL Urine Microalbumin/Creatinine 14.4 UG/MG Less Than 31 Comp Metabolic Panel 03/24/2012 Sodium 136 mmol/L 133-145 Potassium 4.0 mmol/L 3.5-5.0 Chloride 108 mmol/L 101-111 Co2 Carbon Dioxide 22.0 mmol/L 22-32 Anion Gap 6.0 mmol/L 2-11 Glucose 144 mg/dL High 70-100 Blood Urea Nitrogen 24 mg/dL 6-24 Creatinine 1.10 mg/dL 0.50-1.40 BUN/Creatinine Ratio 21.8 High 8-20 Calcium 9.0 mg/dL 8.1-9.9 Total Protein 6.0 g/dL Low 6.2-8.1 Albumin 4.3 g/dL 3.2-5.2 Globulin 1.7 g/dL Low 2-4 Albumin/Globulin Ratio 2.5 1-3 Total Bilirubin 0.9 mg/dL 0.4-1.5 Alkaline Phosphatase 67 U/L 30-110 Alt 32 U/L 14-54 Ast 23 U/L 12-42 Egfr Non- 67.2 >60 Egfr 86.4 >60 48 Lipid Profile (Trig/Chol/HDL) 03/24/2012 Triglycerides 77 mg/dL 40-200 Cholesterol 120 mg/dL Less than 200 HDL Cholesterol 27 mg/dL Low 40-60 49 Cholesterol/HDL Ratio 4.4 Average 1-4.44 LDL Cholesterol 77.6 mg/dL Less Than 100 50 Laboratory test 03/24/2012 Hemoglobin A1c 6.5 % High Less than 6.0 51 finding CBC Auto Diff 03/15/2012 White Blood Count 10.3 10^3/uL 4.8-10.8 Red Blood Count 4.34 10^6/uL 4.0-5.4 Hemoglobin 13.6 g/dL Low 14.0-18.0 Hematocrit 39 % Low 42-52 Mean Corpuscular Volume 89 fL 80-94 Mean Corpuscular Hemoglobin 31 pg 27-31 Mean Corpuscular HGB Conc 35 g/dL 31-36 Red Cell Distribution Width 14 % 10.5-15 Platelet Count 204 10^3/uL 150-450 Mean Platelet Volume 8 um3 7.4-10.4 Abs Neutrophils 6.7 10^3/uL 1.5-7.7 Abs Lymphocytes 2.6 10^3/uL 1.0-4.8 Abs Monocytes 0.8 10^3/uL 0-0.8 Abs Eosinophils 0.2 10^3/uL 0-0.6 Abs Basophils 0.1 10^3/uL 0-0.2 Abs Nucleated RBC 0 10^3/uL Granulocyte % 65.2 % 38-83 Lymphocyte % 25.3 % 25-47 Monocyte % 7.3 % 1-9 Eosinophil % 1.7 % 0-6 Basophil % 0.5 % 0-2 Nucleated Red Blood Cells % 0 Comp Metabolic Panel 03/15/2012 Sodium 136 mmol/L 133-145 Potassium 4.2 mmol/L 3.5-5.0 Chloride 108 mmol/L 101-111 Co2 Carbon Dioxide 24.0 mmol/L 22-32 Anion Gap 4.0 mmol/L 2-11 Glucose 240 mg/dL High 70-100 Blood Urea Nitrogen 18 mg/dL 6-24 Creatinine 0.80 mg/dL 0.50-1.40 BUN/Creatinine Ratio 22.5 High 8-20 Calcium 9.2 mg/dL 8.1-9.9 Total Protein 6.0 g/dL Low 6.2-8.1 Albumin 3.9 g/dL 3.2-5.2 Globulin 2.1 g/dL 2-4 Albumin/Globulin Ratio 1.9 1-3 Total Bilirubin 0.9 mg/dL 0.4-1.5 Alkaline Phosphatase 63 U/L 30-110 Alt 27 U/L 14-54 Ast 22 U/L 12-42 Egfr Non- 97.0 >60 Egfr 124.8 >60 52 Laboratory test finding 03/15/2012 Troponin I 0 ng/mL 0-0.06 53 Surgical Pathology 02/22/2012 S RUN DATE: 02/23/ <SEE 54 NOTE> Comp Metabolic Panel 11/15/2011 Sodium 140 mmol/L 135-145 Potassium 4.2 mmol/L 3.5-5.0 Chloride 108 mmol/L 101-111 Co2 (Carbon Dioxide) 25.0 mmol/L 22-32 Anion Gap 7.0 mmol/L 2-11 55 Glucose 145 mg/dL High 70-100 BUN 14 mg/dL 6-24 Creatinine 1.0 mg/dL 0.50-1.40 One Over Creatinine 1.00 BUN/Creatinine Ratio 14.0 8-20 Calcium 9.6 mg/dL 8.1-9.9 Total Protein 6.8 GM/DL 6.2-8.1 Albumin 4.3 GM/DL 3.2-5.2 Globulin 2.5 GM/DL 2-4 Albumin/Globulin Ratio 1.7 1-3 Bilirubin Total 0.8 mg/dL 0.4-1.5 56 Alkaline Phosphatase 58 U/L 39-117 Alt (SGPT) 23 U/L 17-63 Ast (Sgot) 23 U/L 12-42 eGFR Non- 75.2 > 60 eGFR 96.7 > 60 57 Lipid Profile (Trig/Chol/HDL) 11/15/2011 Triglyceride 91 mg/dL 40-200 Cholesterol 153 mg/dL Less Than 200 58 High Density Lipoprotein 43 mg/dL 40-60 59 Cholesterol/HDL Ratio 3.56 AVERAGE 1-4.97 Low Density Lipoprotein 92 mg/dL Less Than 100 60 Laboratory test finding 11/15/2011 Hemoglobin A1c 6.6 % High Less Than 6.0 61 Basic Metabolic Panel 06/10/2011 Sodium 138 mmol/L 135-145 Potassium 4.2 mmol/L 3.5-5.0 Chloride 104 mmol/L 101-111 Co2 (Carbon Dioxide) 25.0 mmol/L 22-32 Anion Gap 9.0 mmol/L 2-11 62 Glucose 112 mg/dL High 70-100 BUN 15 mg/dL 6-24 Creatinine 1.2 mg/dL 0.50-1.40 One Over Creatinine 0.83 BUN/Creatinine Ratio 12.5 8-20 Calcium 9.4 mg/dL 8.1-9.9 eGFR Non- 61.0 > 60 eGFR 78.4 > 60 63 Statin 06/10/2011 Ast (Sgot) 31 U/L 12-42 Alt (SGPT) 47 U/L 17-63 Lipid Profile (Trig/Chol/HDL) 06/10/2011 Triglyceride 88 mg/dL 40-200 Cholesterol 176 mg/dL Less Than 200 64 High Density Lipoprotein 29 mg/dL Low 40-60 65 Cholesterol/HDL Ratio 6.07 AVERAGE High 1-4.97 Low Density Lipoprotein 129 mg/dL High Less Than 100 66 Laboratory test finding 06/10/2011 Hemoglobin A1c 6.9 % High Less Than 6.0 67 Lipid Profile 08/07/2010 Triglyceride 69 mg/dL 40-200 (Trig/Chol/HDL) Cholesterol 119 mg/dL Less Than 200 68 High Density Lipoprotein 33 mg/dL Low 40-60 69 Cholesterol/HDL Ratio 3.61 AVERAGE 1-4.97 Low Density Lipoprotein 72 mg/dL Less Than 100 70 Basic Metabolic Panel 08/07/2010 Sodium 140 mmol/L 135-145 Potassium 3.9 mmol/L 3.5-5.0 Chloride 109 mmol/L 101-111 Co2 (Carbon Dioxide) 23.0 mmol/L 22-32 Anion Gap 8.0 mmol/L 2-11 71 Glucose 122 mg/dL High 70-100 BUN 14 mg/dL 6-24 Creatinine 0.90 mg/dL 0.50-1.40 One Over Creatinine 1.10 BUN/Creatinine Ratio 15.6 8-20 Calcium 9.0 mg/dL 8.1-9.9 eGFR Non- 85.2 > 60 eGFR 109.6 > 60 72 Lipid Profile (Trig/Chol/HDL) 01/10/2009 Triglyceride 61 mg/dL 40-200 Cholesterol 128 mg/dL Less Than 200 73 High Density Lipoprotein 32 mg/dL Low 40-60 74 Cholesterol/HDL Ratio 4.00 AVERAGE 1-4.97 Low Density Lipoprotein 84 mg/dL Less Than 100 75 Statin 01/10/2009 Ast (Sgot) 17 U/L 12-42 Alt (SGPT) 26 U/L 17-63 Basic Metabolic Panel 01/10/2009 Sodium 137 mmol/L 135-145 Potassium 4.3 mmol/L 3.5-5.0 Chloride 103 mmol/L 101-111 Co2 (Carbon Dioxide) 27.0 mmol/L 22-32 Anion Gap 7.0 mmol/L 2-11 76 Glucose 124 mg/dL High 70-100 77 BUN 18 mg/dL 6-24 Creatinine 1.00 mg/dL 0.50-1.40 One Over Creatinine 1.00 BUN/Creatinine Ratio 18.0 8-20 Calcium 9.0 mg/dL 8.1-9.9 78 eGFR Non- 80.7 > 60 eGFR 97.7 > 60 79 Laboratory test finding 01/10/2009 Hemoglobin A1c 6.1 % High Less Than 6.0 80 Basic Metabolic Panel 07/29/2008 Sodium 137 mmol/L 135-145 Potassium 4.0 mmol/L 3.5-5.0 Chloride 106 mmol/L 101-111 Co2 (Carbon Dioxide) 26.0 mmol/L 22-32 Anion Gap 5.0 mmol/L 2-11 81 Glucose 108 mg/dL High 70-100 82 BUN 17 mg/dL 6-24 Creatinine 1.00 mg/dL 0.50-1.40 One Over Creatinine 1.00 BUN/Creatinine Ratio 17.0 8-20 Calcium 8.9 mg/dL 8.1-9.9 83 Laboratory test finding 07/29/2008 PSA Screening 1.03 NG/ML 0-4 84 Lipid Profile (Trig/Chol/HDL) 07/29/2008 Triglyceride 55 mg/dL 40-200 Cholesterol 116 mg/dL Less Than 200 85 High Density Lipoprotein 32 mg/dL Low 40-60 86 Cholesterol/HDL Ratio 3.63 AVERAGE 1-4.97 Low Density Lipoprotein 73 mg/dL Less Than 100 87 Statin 07/29/2008 Ast (Sgot) 20 U/L 12-42 Alt (SGPT) 4 U/L Low 17-63 Surgical Pathology 07/23/2008 Surgical Pathology <SEE 88 NOTE> Basic Metabolic 07/15/2008 Sodium 140 mmol/L 135-145 Panel Potassium 5.2 mmol/L High 3.5-5.0 Chloride 105 mmol/L 101-111 Co2 (Carbon Dioxide) 28.0 mmol/L 22-32 Anion Gap 7.0 mmol/L 2-11 89 Glucose 125 mg/dL High 70-100 90 BUN 17 mg/dL 6-24 Creatinine 1.10 mg/dL 0.50-1.40 One Over Creatinine 0.90 BUN/Creatinine Ratio 15.5 8-20 Calcium 9.5 mg/dL 8.1-9.9 91 Urine DIP 06/25/2008 Leukocytes NEG Neg Urine Nitrites NEG Neg Urine pH 5 5-6 Total Protein, Urine NEG Neg Urine Glucose NORM Norm Urine Ketones NEG Neg Urobilinogen NORM Norm Urine Bilirubin NEG Neg Urine Blood NEG Neg Specific [place] NA Low 1.01-1.02 Lipid Profile (Trig/Chol/HDL) 01/31/2008 Triglyceride 57 mg/dL 40-200 Cholesterol 120 mg/dL Less Than 200 92 High Density Lipoprotein 29 mg/dL Low 40-60 93 Cholesterol/HDL Ratio 4.14 AVERAGE 1-4.97 Low Density Lipoprotein 80 mg/dL Less Than 100 94 Statin 01/31/2008 Ast (Sgot) 20 U/L 12-42 Alt (SGPT) 27 U/L 17-63 Laboratory test finding 04/21/2007 Hemoglobin A1c 6.0 % <6.0 95, 96 Basic Metabolic Panel 04/21/2007 One Over Creatinine 1.00 95 Anion Gap 4.0 mmol/L 2-11 95, 97 BUN 17 mg/dL 6-24 95 Calcium 9.4 mg/dL 8.7-10.2 95 Chloride 108 mmol/L 101-111 95 Co2 (Carbon Dioxide) 27.0 mmol/L 22-32 95 Glucose 102 mg/dL 70-105 95 Potassium 4.3 mmol/L 3.5-5.0 95 Sodium 139 mmol/L 135-145 95 BUN/Creatinine Ratio 17.0 8-20 95 Creatinine 1.0 mg/dL 0.5-1.4 95 Lipid Profile 04/21/2007 Cholesterol/HDL Ratio 4.17 AVERAGE 1-4.97 95 (Trig/Chol/HDL) Cholesterol 146 mg/dL Less Than 200 95, 98 Triglyceride 70 mg/dL 40-200 95 High Density Lipoprotein 35 mg/dL Low 40-60 95, 99 Low Density Lipoprotein 97 mg/dL Less Than 100 95, 100 Statin 04/21/2007 Ast (Sgot) 25 U/L 12-42 95 Alt (SGPT) 35 U/L 17-63 95 Lipid Profile 12/28/2006 Cholesterol/HDL Ratio 4.13 AVERAGE 1-4.97 95 (Trig/Chol/HDL) Cholesterol 161 mg/dL Less Than 200 95, 101 Triglyceride 74 mg/dL 40-200 95 High Density Lipoprotein 39 mg/dL Low 40-60 95, 102 Low Density Lipoprotein 107 mg/dL High Less Than 100 95, 103 Statin 12/28/2006 Ast (Sgot) 26 U/L 12-42 95 Alt (SGPT) 35 U/L 17-63 95 Basic Metabolic Panel 12/28/2006 One Over Creatinine 1.11 95 Anion Gap 6.0 mmol/L 2-11 95, 104 BUN 16 mg/dL 6-24 95 Calcium 8.3 mg/dL Low 8.7-10.2 95 Chloride 104 mmol/L 101-111 95 Co2 (Carbon Dioxide) 25.0 mmol/L 22-32 95 Glucose 120 mg/dL High 70-105 95 Potassium 4.1 mmol/L 3.5-5.0 95 Sodium 135 mmol/L 135-145 95 BUN/Creatinine Ratio 17.8 8-20 95 Creatinine 0.9 mg/dL 0.5-1.4 95 Laboratory test finding 05/17/2006 PSA Screening 1.19 NG/ML 0.01-4.0 95 , 105 Basic Metabolic Panel 05/17/2006 One Over Creatinine 1.00 95 Anion Gap 5.0 mmol/L 2-11 95, 106 BUN 14 mg/dL 6-24 95 Calcium 9.5 mg/dL 8.7-10.2 95 Chloride 106 mmol/L 101-111 95 Co2 (Carbon Dioxide) 29.0 mmol/L 22-32 95 Glucose 110 mg/dL High 70-105 95 Potassium 4.5 mmol/L 3.5-5.0 95 Sodium 140 mmol/L 135-145 95 BUN/Creatinine Ratio 14.0 8-20 95 Creatinine 1.0 mg/dL 0.5-1.4 95 Laboratory test 05/17/2006 Hemoglobin A1c 5.7 % <6.0 95, 107 finding Lipid Profile 05/17/2006 Cholesterol/HDL Ratio 3.70 AVERAGE 1-4.97 95 (Trig/Chol/HDL) Cholesterol 148 mg/dL Less Than 200 95, 108 Triglyceride 84 mg/dL 40-200 95 High Density Lipoprotein 40 mg/dL 40-60 95 Low Density Lipoprotein 91 mg/dL Less Than 100 95, 109 Statin 05/17/2006 Ast (Sgot) 19 U/L 12-42 95 Alt (SGPT) 31 U/L 17-63 95 Lipid Profile 03/09/2006 Cholesterol/HDL Ratio 4.29 AVERAGE 1-4.97 95 (Trig/Chol/HDL) Cholesterol 176 mg/dL Less Than 200 95, 110 Triglyceride 106 mg/dL 40-200 95 High Density Lipoprotein 41 mg/dL 40-60 95 Low Density Lipoprotein 114 mg/dL High Less Than 100 95, 111 Statin 03/09/2006 Ast (Sgot) 20 U/L 12-42 95 Alt (SGPT) 29 U/L 17-63 95 Basic Metabolic Panel 03/09/2006 One Over Creatinine 0.90 95 Anion Gap 8.0 mmol/L 2-11 95, 112 BUN 21 mg/dL 6-24 95 Calcium 9.2 mg/dL 8.7-10.2 95 Chloride 103 mmol/L 101-111 95 Co2 (Carbon Dioxide) 28.0 mmol/L 22-32 95 Glucose 111 mg/dL High 70-105 95 Potassium 4.6 mmol/L 3.5-5.0 95 Sodium 139 mmol/L 135-145 95 BUN/Creatinine Ratio 19.1 8-20 95 Creatinine 1.1 mg/dL 0.5-1.4 95 Surgical Pathology 05/18/2005 Surgical Pathology Run: 05/20/05 09 113 <SEE NOTE> Laboratory test 02/19/2005 Hemoglobin A1c 5.6 finding Laboratory test 02/19/2005 PSA Screening 0.9 NG/ML 0-4 95, 114 finding Lipid Profile 02/19/2005 Cholesterol 151 mg/dL Less Than 95, 115 (Trig/Chol/HDL) 200 Triglyceride 48 mg/dL 40-200 95 High Density Lipoprotein 43 mg/dL 40-60 95 Low Density Lipoprotein 98 mg/dL Less Than 100 95, 116 Cholesterol/HDL Ratio 3.51 AVERAGE 1-4.97 95 Comp Metabolic Panel 02/19/2005 One Over Creatinine 0.90 95 Anion Gap 5.0 mmol/L 2-11 95, 117 Albumin/Globulin Ratio 1.7 1-3 95 Albumin 4.0 GM/DL 3.6-5.4 95 Alkaline Phosphatase 57 U/L 39-117 95 Alt (SGPT) 30 U/L 17-63 95 Ast (Sgot) 21 U/L 12-42 95 BUN 17 mg/dL 6-24 95 Calcium 9.3 mg/dL 8.7-10.2 95 Chloride 109 mmol/L 101-111 95 Co2 (Carbon Dioxide) 25.0 mmol/L 22-32 95 Globulin 2.3 GM/DL 2-4 95 Glucose 116 mg/dL High 70-105 95 Potassium 4.3 mmol/L 3.5-5.0 95 Sodium 139 mmol/L 135-145 95 Bilirubin Total 0.7 mg/dL 0.4-1.5 95 Total Protein 6.3 GM/DL 6.2-8.1 95 BUN/Creatinine Ratio 15.5 8-20 95 Creatinine 1.1 mg/dL 0.5-1.4 95 CBC With Electronic Diff 02/19/2005 White Blood Count 7.6 CUMM 4.8-10.8 95 Abs Basophils 0.1 0-0.2 95 Abs Eosinophils 0.2 0-0.6 95 Absolute Neutrophil Count 4.4 1.5-7.7 95 Abs Lymphs 2.3 1.0-4.8 95 Abs Mononuclear 0.6 0-0.8 95 Basophil % 0.7 % 0-2 95 Hematocrit 42 % 42-52 95 Hemoglobin 14.5 g/dL 14.0-18.0 95 Eosinophil % 2.9 % 0-6 95 Gran % 57.4 % 38-83 95 Lymph % 30.9 % 20-45 95 Mean Corpuscular HGB Cone 34 g/dL 32-36 95 Mean Corpuscular Hemoglob 31 pg 27-31 95 Mean Corpuscular Volume 90 um3 80-94 95 Mean Platelet Volume 7.4 um3 7.4-10.4 95 Mononuclear % 8.1 % 1-9 95 Platelet Count 237 CUMM 150-450 95 Red Cell Count 4.72 CUMM 4.6-6.2 95 Redcell Distribution WDTH 14 % 10.5-15 95 Laboratory test finding 02/19/2005 Uric Acid 6.7 mg/dL 2.6-7.2 95 Statin 06/09/2004 Ast (Sgot) 25 U/L 12-42 Alt (SGPT) 37 U/L 17-63 Lipid Profile 06/09/2004 Cholesterol/HDL Ratio 3.35 AVERAGE 1-4.97 (Trig/Chol/HDL) Cholesterol 144 mg/dL Less Than 200 118 Triglyceride 91 mg/dL 40-200 High Density Lipoprotein 43 mg/dL 40-60 Low Density Lipoprotein 83 mg/dL Less Than 100 119 Laboratory test finding 06/09/2004 PSA Screening 0.8 NG/ML 0-4 120 Statin 10/23/2003 Ast (Sgot) 19 U/L 12-42 Alt (SGPT) 19 U/L 17-63 Lipid Profile 10/23/2003 Cholesterol/HDL Ratio 3.29 AVERAGE 1-4.97 (Trig/Chol/HDL) Cholesterol 135 mg/dL Less Than 200 121 Triglyceride 56 mg/dL 40-200 High Density Lipoprotein 41 mg/dL 40-60 Low Density Lipoprotein 83 mg/dL Less Than 100 122 PT With Inr 12/11/2002 Prothrombin Time 25.0 International Normalized Ratio 4.04 PT With Inr 11/16/2002 Prothrombin Time 28.1 International Normalized Ratio 5.02 PT With Inr 11/12/2002 Prothrombin Time 22.9 International Normalized Ratio 3.43 PT With Inr 11/12/2002 Prothrombin Time 22.9 International Normalized Ratio 3.43 PT With Inr 11/09/2002 Prothrombin Time 15.3 International Normalized Ratio 1.62 PT With Inr 11/07/2002 Prothrombin Time 12.9 International Normalized Ratio 1.18 Hemoccult 06/01/2002 Stool-Occult Blood #1 NEG Neg Stool-Occult Blood #2 NEG Neg Stool-Occult Blood #3 NEG Neg Urine DIP 05/15/2002 Leukocytes NEG Neg Urine Nitrites NEG Neg Urine pH 5 5-6 Total Protein, Urine NEG Neg Urine Glucose NORM Norm Urine Ketones NEG Neg Urobolinogen NORM Norm Urine Bilirubin NEG Neg Urine Blood NEG Neg Specific [place] NA Low 1.01-1.02 Laboratory test finding 05/15/2002 PSA Screening 0.8 NG/ML 0-4 123 CBC With Electronic Diff 05/15/2002 Platelet Count 234 CUMM 150-450 White Blood Count 7.8 CUMM 4.8-10.8 Abs Basophils 0 0-0.2 Abs Eosinophils 0.2 0-0.6 Abs Grans 5.0 1.5-7.7 Abs Lymphs 2.0 1.0-4.8 Abs Mononuclear 0.6 0-0.8 Basophil % 0.1 % 0-2 Hematocrit 45 % 42-52 Hemoglobin 15.0 g/dL 14.0-18.0 Eosinophil % 2.9 % 0-6 Gran % 63.5 % 38-83 Lymph % 25.6 % 20-45 Mean Corpuscular HGB Cone 34 g/dL 32-36 Mean Corpuscular Hemoglob 30 pg 27-31 Mean Corpuscular Volume 89 um3 80-94 Mean Platelet Volume 7.1 um3 Low 7.4-10.4 Mononuclear % 7.9 % 1-9 Red Cell Count 5.05 CUMM 4.6-6.2 Redcell Distribution WDTH 13 % 10.5-15 Comp Metabolic Panel 05/15/2002 Albumin/Globulin Ratio 1.5 1-3 Albumin 4.1 GM/DL 3.6-5.4 Alkaline Phosphatase 62 U/L 39-117 BUN 14 mg/dL 6-24 Calcium 9.2 mg/dL 8.7-10.2 Chloride 104 mmol/L 101-111 Co2 (Carbon Dioxide) 29.0 mmol/L 22-32 Creatinine 1.1 mg/dL 0.5-1.4 Globulin 2.8 GM/DL 2-4 Glucose 114 mg/dL High 70-105 Potassium 4.4 mmol/L 3.5-5.0 Sodium 139 mmol/L 135-145 Bilirubin Total 0.7 mg/dL 0.4-1.5 Total Protein 6.9 GM/DL 6.2-8.1 BUN/Creatinine Ratio 12.7 8-20 Lipid Profile 05/15/2002 Cholesterol/HDL Ratio 3.68 AVERAGE 1-4.97 (Trig/Chol/HDL) Cholesterol 147 mg/dL Less Than 200 124 Triglyceride 81 mg/dL 40-200 High Density Lipoprotein 40 mg/dL 40-60 Low Density Lipoprotein 91 mg/dL Less Than 100 125 Statin 05/15/2002 Ast (Sgot) 22 U/L 12-42 Alt (SGPT) 34 U/L 17-63 Comprehensive Metabolic 09/18/2001 Glucose 108 mg/dL 61.0 - 113.0 BUN 16 mg/dL 5.0 - 21.0 Creatinine, Serum 0.9 mg/dL 0.6 - 1.5 Sodium 141 mmol/L 135.0 - 146.0 Potassium 4.6 mmol/L 3.6 - 5.0 Chloride 107 mmol/L 98.0 - 108.0 Carbon Dioxide 25 mmol/L 23.0 - 33.0 Albumin 4.5 g/dL 3.8 - 4.6 Protein, Total 7.3 g/dL 6.2 - 8.0 Calcium 9.3 mg/dL 8.3 - 10.3 126 Alkaline Phosphatase 74 U/L 45.0 - 120.0 Sgot (Ast) 21 U/L 9.0 - 43.0 SGPT (Alt) 27 U/L 11.0 - 51.0 Bilirubin, Total 0.40 mg/dL 0.2 - 1.3 Lipid Profile 09/18/2001 Triglycerides 73 mg/dL 23.0 - 253.0 Cholesterol, Total 170 mg/dL 120.0 - 200.0 127 HDL Cholesterol 54 mg/dL 35.0 - 9999.0 LDL Cholesterol 101 mg/dL 128 LDL/HDL Cholesterol 1.9 129 Chol/HDL Cholesterol 3.1 130 1 Therapeutic target for the treatment of diabetes mellitus patients is <7% HBA1C, and in selective patients <6.0%. Please refer to [place] [employer] diabetic care guidelines for further information. 2 Desirable: <150 Borderline High: 150-199 High: 200-499 Very High: >500 3 Desirable: <200 Borderline High: 200-239 High: >239 4 Low: <40 Desirable: 40-60 High: >60 5 Desirable: <100 Near Optimal: 100-129 Borderline High: 130-159 High: 160-189 Very High: >189 6 Because ethnic data is not always readily available, this report includes an eGFR for both -Americans and non- Americans. The National Kidney Disease Education Program (NKDEP) does not endorse the use of the MDRD equation for patients that are not between the ages of 18 and 70, are , have extremes of body size, muscle mass, or nutritional status, or are non- or non-. According to the National Kidney Foundation, irrespective of diagnosis, the stage of the disease is based on the level of kidney function: Stage Description GFR(mL/min/1.73 m(2)) 1 Kidney damage with normal or decreased GFR 90 2 Kidney damage with mild decrease in GFR 60-89 3 Moderate decrease in GFR 30-59 4 Severe decrease in GFR 15-29 5 Kidney failure <15 (or dialysis) 7 Because ethnic data is not always readily available, this report includes an eGFR for both -Americans and non- Americans. The National Kidney Disease Education Program (NKDEP) does not endorse the use of the MDRD equation for patients that are not between the ages of 18 and 70, are , have extremes of body size, muscle mass, or nutritional status, or are non- or non-. According to the National Kidney Foundation, irrespective of diagnosis, the stage of the disease is based on the level of kidney function: Stage Description GFR(mL/min/1.73 m(2)) 1 Kidney damage with normal or decreased GFR 90 2 Kidney damage with mild decrease in GFR 60-89 3 Moderate decrease in GFR 30-59 4 Severe decrease in GFR 15-29 5 Kidney failure <15 (or dialysis) 8 Desirable: <150 Borderline High: 150-199 High: 200-499 Very High: >500 9 Desirable: <200 Borderline High: 200-239 High: >239 10 Low: <40 Desirable: 40-60 High: >60 11 Desirable: <100 Near Optimal: 100-129 Borderline High: 130-159 High: 160-189 Very High: >189 12 Therapeutic target for the treatment of diabetes mellitus patients is <7% HBA1C, and in selective patients <6.0%. Please refer to [place] [employer] diabetic care guidelines for further information. 13 Therapeutic target for the treatment of diabetes mellitus patients is <7% HBA1C, and in selective patients <6.0%. Please refer to [place] [employer] diabetic care guidelines for further information. 14 Desirable: <150 Borderline High: 150-199 High: 200-499 Very High: >500 15 Desirable: <200 Borderline High: 200-239 High: >239 16 Low: <40 Desirable: 40-60 High: >60 17 Desirable: <100 Near Optimal: 100-129 Borderline High: 130-159 High: 160-189 Very High: >189 18 Because ethnic data is not always readily available, this report includes an eGFR for both -Americans and non- Americans. The National Kidney Disease Education Program (NKDEP) does not endorse the use of the MDRD equation for patients that are not between the ages of 18 and 70, are , have extremes of body size, muscle mass, or nutritional status, or are non- or non-. According to the National Kidney Foundation, irrespective of diagnosis, the stage of the disease is based on the level of kidney function: Stage Description GFR(mL/min/1.73 m(2)) 1 Kidney damage with normal or decreased GFR 90 2 Kidney damage with mild decrease in GFR 60-89 3 Moderate decrease in GFR 30-59 4 Severe decrease in GFR 15-29 5 Kidney failure <15 (or dialysis) 19 Because ethnic data is not always readily available, this report includes an eGFR for both -Americans and non- Americans. The National Kidney Disease Education Program (NKDEP) does not endorse the use of the MDRD equation for patients that are not between the ages of 18 and 70, are , have extremes of body size, muscle mass, or nutritional status, or are non- or non-. According to the National Kidney Foundation, irrespective of diagnosis, the stage of the disease is based on the level of kidney function: Stage Description GFR(mL/min/1.73 m(2)) 1 Kidney damage with normal or decreased GFR 90 2 Kidney damage with mild decrease in GFR 60-89 3 Moderate decrease in GFR 30-59 4 Severe decrease in GFR 15-29 5 Kidney failure <15 (or dialysis) 20 Therapeutic target for the treatment of diabetes Mellitus patients is <7% HBA1C, and in selective patients <6.0%.Please refer to [place] [employer] Diabetic care guidelines for further information. 21 Desirable <150 Borderline high 150-199 High 200-499 Very High >500 22 Desirable <200 Borderline high 200-239 High >239 23 Low <40 Desirable: 40-60 High: >60 24 Desirable: <100 mg/dL Near Optimal: 100-129 mg/dL Borderline High: 130-159 mg/dL High: 160-189 mg/dL Very High: >189 mg/dL 25 [id number] Serum levels of PSA measured using the [employer] DXI Hybritech immunoassay should not be interpreted as absolute evidence of the presence or absence of disease. The PSA value should be used in conjunction with other pertinent clinical diagnostic procedures. The values obtained with different assay methods or kits cannot be used interchangeably. 27 Because ethnic data is not always readily available, this report includes an eGFR for both -Americans and non- Americans. The National Kidney Disease Education Program (NKDEP) does not endorse the use of the MDRD equation for patients that are not between the ages of 18 and 70, are , have extremes of body size, muscle mass, or nutritional status, or are non- or non-. According to the [employer], irrespective of diagnosis, the stage of the disease is based on the level of kidney function: Stage Description GFR(mL/min/1.73 m(2)) 1 Kidney damage with normal or decreased GFR 90 2 Kidney damage with mild decrease in GFR 60-89 3 Moderate decrease in GFR 30-59 4 Severe decrease in GFR 15-29 5 Kidney failure <15 (or dialysis) 28 [facility] 894 29 Therapeutic target for the treatment of diabetes Mellitus patients is <7% HBA1C, and in selective patients <6.0%.Please refer to [place] [employer] Diabetic care guidelines for further information. 30 Serum levels of PSA measured using the [employer] [place] DXI Hybritech immunoassay should not be interpreted as absolute evidence of the presence or absence of disease. The PSA value should be used in conjunction with other pertinent clinical diagnostic procedures. The values obtained with different assay methods or kits cannot be used interchangeably. 31 Desirable <150 Borderline high 150-199 High 200-499 Very High >500 32 Desirable <200 Borderline high 200-239 High >239 33 Low <40 Desirable: 40-60 High: >60 34 Desirable: <100 mg/dL Near Optimal: 100-129 mg/dL Borderline High: 130-159 mg/dL High: 160-189 mg/dL Very High: >189 mg/dL 35 Therapeutic target for the treatment of diabetes Mellitus patients is <7% HBA1C, and in selective patients <6.0%.Please refer to [place] Diabetes Association Diabetic care guidelines for further information. 36 >100 to <200 pg/mL: likely compensated congestive heart failure (CHF) 200 to 400 pg/mL: likely moderate CHF >400 pg/mL: likely moderate to severe CHF 37 Because ethnic data is not always readily available, this report includes an eGFR for both -Americans and non- Americans. The National Kidney Disease Education Program (NKDEP) does not endorse the use of the MDRD equation for patients that are not between the ages of 18 and 70, are , have extremes of body size, muscle mass, or nutritional status, or are non- or non-. According to the National Kidney Foundation, irrespective of diagnosis, the stage of the disease is based on the level of kidney function: Stage Description GFR(mL/min/1.73 m(2)) 1 Kidney damage with normal or decreased GFR 90 2 Kidney damage with mild decrease in GFR 60-89 3 Moderate decrease in GFR 30-59 4 Severe decrease in GFR 15-29 5 Kidney failure <15 (or dialysis) 38 Acute inflammation: >10.00 39 Reference Range and Interpretation: TnI (ng/mL) Interpretation Less Than 0.03 ng/mL Not supportive of diagnosis of MA 0.03 - 0.50 ng/mL Indeterminate: suggest serial studies if clinically indicated. Greater than 0.5 ng/mL Consistent with diagnosis of MA 40 Therapeutic target for the treatment of diabetes Mellitus patients is <7% HBA1C, and in selective patients <6.0%.Please refer to [place] Diabetes Association Diabetic care guidelines for further information. 41 FASTING 42 FASTING 43 HDL Interpretation: Undesirable: High Risk: Less than 40 MG/DL Desirable: Low Risk: Greater than 60 MG/DL 44 LDL Interpretation: Low Risk Optimal Level: LDL Less than 100 MG/DL Near or Above Optimal: LDL 100-129 MG/DL Borderline High Risk: LDL 130-159 MG/DL High Risk: LDL 160-189 MG/DL Very High Risk: LDL Greater than 189 MG/DL 45 Because ethnic data is not always readily available, this report includes an eGFR for both -Americans and non- Americans. The National Kidney Disease Education Program (NKDEP) does not endorse the use of the MDRD equation for patients that are not between the ages of 18 and 70, are , have extremes of body size, muscle mass, or nutritional status, or are non- or non-. According to the National Kidney Foundation, irrespective of diagnosis, the stage of the disease is based on the level of kidney function: Stage Description GFR(mL/min/1.73 m(2)) 1 Kidney damage with normal or decreased GFR 90 2 Kidney damage with mild decrease in GFR 60-89 3 Moderate decrease in GFR 30-59 4 Severe decrease in GFR 15-29 5 Kidney failure <15 (or dialysis) 46 Serum levels of PSA measured using the [employer] DXI Hybritech immunoassay should not be interpreted as absolute evidence of the presence or absence of disease. The PSA value should be used in conjunction with other pertinent clinical diagnostic procedures. The values obtained with different assay methods or kits cannot be used interchangeably. 47 Microalbuminuria in a random sample is defined as: Microalbumin/Creatinine ratio of 30-299 ug/mg. 48 Because ethnic data is not always readily available, this report includes an eGFR for both -Americans and non- Americans. The National Kidney Disease Education Program (NKDEP) does not endorse the use of the MDRD equation for patients that are not between the ages of 18 and 70, are , have extremes of body size, muscle mass, or nutritional status, or are non- or non-. According to the National Kidney Foundation, irrespective of diagnosis, the stage of the disease is based on the level of kidney function: Stage Description GFR(mL/min/1.73 m(2)) 1 Kidney damage with normal or decreased GFR 90 2 Kidney damage with mild decrease in GFR 60-89 3 Moderate decrease in GFR 30-59 4 Severe decrease in GFR 15-29 5 Kidney failure <15 (or dialysis) 49 HDL Interpretation: Undesirable: High Risk: Less than 40 MG/DL Desirable: Low Risk: Greater than 60 MG/DL 50 LDL Interpretation: Low Risk Optimal Level: LDL Less than 100 MG/DL Near or Above Optimal: LDL 100-129 MG/DL Borderline High Risk: LDL 130-159 MG/DL High Risk: LDL 160-189 MG/DL Very High Risk: LDL Greater than 189 MG/DL 51 Therapeutic target for the treatment of diabetes Mellitus patients is <7% HBA1C, and in selective patients <6.0%.Please refer to [place] Diabetes Association Diabetic care guidelines for further information. 52 Because ethnic data is not always readily available, this report includes an eGFR for both -Americans and non- Americans. The National Kidney Disease Education Program (NKDEP) does not endorse the use of the MDRD equation for patients that are not between the ages of 18 and 70, are , have extremes of body size, muscle mass, or nutritional status, or are non- or non-. According to the National Kidney Foundation, irrespective of diagnosis, the stage of the disease is based on the level of kidney function: Stage Description GFR(mL/min/1.73 m(2)) 1 Kidney damage with normal or decreased GFR 90 2 Kidney damage with mild decrease in GFR 60-89 3 Moderate decrease in GFR 30-59 4 Severe decrease in GFR 15-29 5 Kidney failure <15 (or dialysis) 53 Reference Range and Interpretation: TnI (ng/ml) Interpretation Less Than 0.06 ng/mL Not supportive of diagnosis of MA 0.06 - 0.50 ng/ml Indeterminate: suggest serial studies if clinically indicated. Greater than 0.5 ng/mL Consistent with diagnosis of MA 54 RUN DATE: 02/24/12 [facility] LAB LIVE PAGE 1 RUN TIME: [address] [place], [place] [address] Specimen Inquiry Name: GEORGE MARADIAGA : [address]: Anjel Sales MD Acct: [id number] Unit: [id number] AGE: 67 Location: ENDO Re02/22/12 SEX: M Status: REG REF SPEC: [id number] CHUCKIE: 02/22/12- SUBM DR: Anjel Sales MD REQ: [id number] RECD: 02/23/121244 STATUS: BRITTNEY SIGALA DR: Joselyn Aguirre MD _ ORDERED: LEVEL IV FINAL DIAGNOSIS Colon, distal sigmoid polyp, biopsy: Hyperplastic polyp. CLINICAL HISTORY Diverticulosis; personal history of polyps. Usual bowel habit - every day with no blood. Positive family history - maternal grandfather (70?) POST-OPERATIVE DIAGNOSIS Mild to moderate left colon diverticulosis; sigmoid nodule GROSS DESCRIPTION The specimen is received in formalin labelled George Maradiaga, Biopsy Distal Sigmoid Colon Polyp, and consists of a em, soft tissue fragment measuring 0.3 x 0.2 x 0.2 cm. Submitted entirely, one cassette. Signed (signature on file) Jesus Chino MD 1539 END OF REPORT * ML=Testing performed at Main Lab DEPARTMENT OF PATHOLOGY, [address] [place] [address] Jesus Chino M.D. Director [facility] Permit #[id number] 55 Anion gap measurement may be of limited value in the presence of any alkalosis, especially in a combined acid base disorder. . 56 A metabolite of Naproxen, O-desmethylnaproxen, has been shown to interfere with the Jendrassik-Sasha method for measuring total bilirubin. Samples from patients who have taken Naproxen have shown spurious elevation in total bilirubin levels. 57 Because ethnic data is not always readily available, this report includes an eGFR for both -Americans and non- Americans. The National Kidney Disease Education Program (NKDEP) does not endorse the use of the MDRD equation for patients that are not between the ages of 18 and 70, are , have extremes of body size, muscle mass, or nutritional status, or are non- or non-. According to the National Kidney Foundation, irrespective of diagnosis, the stage of the disease is based on the level of kidney function: Stage Description GFR(mL/min/1.73 m(2)) 1 Kidney damage with normal or decreased GFR 90 2 Kidney damage with mild decrease in GFR 60-89 3 Moderate decrease in GFR 30-59 4 Severe decrease in GFR 15-29 5 Kidney failure <15 (or dialysis) 58 CHOLESTEROL INTERPRETATION: Desirable: Less than 200 MG/DL Borderline-High Risk: 200-239 MG/DL High-Risk: 240 MG/DL and over 59 HDL INTERPRETATION: Undesirable: High Risk: Less than 40 MG/DL Desirable: Low Risk: Greater than 60 MG/DL 60 LDL INTERPRETATION: Low Risk Optimal Level: LDL Less than 100 MG/DL Near or Above Optimal: LDL 100-129 MG/DL Borderline High Risk: LDL 130-159 MG/DL High Risk: LDL 160-189 MG/DL Very High Risk: LDL Greater than 189 MG/DL 61 THERAPEUTIC TARGET FOR THE TREATMENT OF DIABETES MELLITUS PATIENTS IS <7% HBA1C, AND IN SELECTIVE PATIENTS <6.0%. PLEASE REFER TO [place] [employer]OC[employer]ATION DIABETIC CARE GUIDELINES FOR FURTHER INFORMATION. 62 Anion gap measurement may be of limited value in the presence of any alkalosis, especially in a combined acid base disorder. . 63 Because ethnic data is not always readily available, this report includes an eGFR for both -Americans and non- Americans. The National Kidney Disease Education Program (NKDEP) does not endorse the use of the MDRD equation for patients that are not between the ages of 18 and 70, are , have extremes of body size, muscle mass, or nutritional status, or are non- or non-. According to the National Kidney Foundation, irrespective of diagnosis, the stage of the disease is based on the level of kidney function: Stage Description GFR(mL/min/1.73 m(2)) 1 Kidney damage with normal or decreased GFR 90 2 Kidney damage with mild decrease in GFR 60-89 3 Moderate decrease in GFR 30-59 4 Severe decrease in GFR 15-29 5 Kidney failure <15 (or dialysis) 64 CHOLESTEROL INTERPRETATION: Desirable: Less than 200 MG/DL Borderline-High Risk: 200-239 MG/DL High-Risk: 240 MG/DL and over 65 HDL INTERPRETATION: Undesirable: High Risk: Less than 40 MG/DL Desirable: Low Risk: Greater than 60 MG/DL 66 LDL INTERPRETATION: Low Risk Optimal Level: LDL Less than 100 MG/DL Near or Above Optimal: LDL 100-129 MG/DL Borderline High Risk: LDL 130-159 MG/DL High Risk: LDL 160-189 MG/DL Very High Risk: LDL Greater than 189 MG/DL 67 THERAPEUTIC TARGET FOR THE TREATMENT OF DIABETES MELLITUS PATIENTS IS <7% HBA1C, AND IN SELECTIVE PATIENTS <6.0%. PLEASE REFER TO [place] [employer]OC[employer] DIABETIC CARE GUIDELINES FOR FURTHER INFORMATION. 68 CHOLESTEROL INTERPRETATION: Desirable: Less than 200 MG/DL Borderline-High Risk: 200-239 MG/DL High-Risk: 240 MG/DL and over 69 HDL INTERPRETATION: Undesirable: High Risk: Less than 40 MG/DL Desirable: Low Risk: Greater than 60 MG/DL 70 LDL INTERPRETATION: Low Risk Optimal Level: LDL Less than 100 MG/DL Near or Above Optimal: LDL 100-129 MG/DL Borderline High Risk: LDL 130-159 MG/DL High Risk: LDL 160-189 MG/DL Very High Risk: LDL Greater than 189 MG/DL 71 Anion gap measurement may be of limited value in the presence of any alkalosis, especially in a combined acid base disorder. . 72 Because ethnic data is not always readily available, this report includes an eGFR for both -Americans and non- Americans. The National Kidney Disease Education Program (NKDEP) does not endorse the use of the MDRD equation for patients that are not between the ages of 18 and 70, are , have extremes of body size, muscle mass, or nutritional status, or are non- or non-. According to the National Kidney Foundation, irrespective of diagnosis, the stage of the disease is based on the level of kidney function: Stage Description GFR(mL/min/1.73 m(2)) 1 Kidney damage with normal or decreased GFR 90 2 Kidney damage with mild decrease in GFR 60-89 3 Moderate decrease in GFR 30-59 4 Severe decrease in GFR 15-29 5 Kidney failure <15 (or dialysis) 73 CHOLESTEROL INTERPRETATION: Desirable: Less than 200 MG/DL Borderline-High Risk: 200-239 MG/DL High-Risk: 240 MG/DL and over 74 HDL INTERPRETATION: Undesirable: High Risk: Less than 40 MG/DL Desirable: Low Risk: Greater than 60 MG/DL 75 LDL INTERPRETATION: Low Risk Optimal Level: LDL Less than 100 MG/DL Near or Above Optimal: LDL 100-129 MG/DL Borderline High Risk: LDL 130-159 MG/DL High Risk: LDL 160-189 MG/DL Very High Risk: LDL Greater than 189 MG/DL 76 Anion gap measurement may be of limited value in the presence of any alkalosis, especially in a combined acid base disorder. . 77 Note change in reference range as of 11/30/07. The change was based on recommendations from the [place] Diabetes [employer]. 78 Please note change in reference range effective 07 . 79 Because ethnic data is not always readily available, this report includes an eGFR for both -Americans and non- Americans. The National Kidney Disease Education Program (NKDEP) does not endorse the use of the MDRD equation for patients that are not between the ages of 18 and 70, are , have extremes of body size, muscle mass, or nutritional status, or are non- or non-. According to the National Kidney Foundation, irrespective of diagnosis, the stage of the disease is based on the level of kidney function: Stage Description GFR(mL/min/1.73 m(2)) 1 Kidney damage with normal or decreased GFR 90 2 Kidney damage with mild decrease in GFR 60-89 3 Moderate decrease in GFR 30-59 4 Severe decrease in GFR 15-29 5 Kidney failure <15 (or dialysis) 80 THERAPEUTIC TARGET FOR THE TREATMENT OF DIABETES MELLITUS PATIENTS IS <7% HBA1C, AND IN SELECTIVE PATIENTS <6.0%. PLEASE REFER TO [place] [employer] DIABETIC CARE GUIDELINES FOR FURTHER INFORMATION. 81 Anion gap measurement may be of limited value in the presence of any alkalosis, especially in a combined acid base disorder. . 82 Note change in reference range as of 11/30/07. The change was based on recommendations from the [place] Diabetes [employer]. 83 Please note change in reference range effective 07 . 84 * SERUM LEVELS OF PSA MEASURED USING THE [employer] ACCESS HYBRITECH IMMUNOASSAY SHOULD NOT BE INTERPRETED ABSOLUTE EVIDENCE OF THE PRESENCE OR ABSENCE OF DISEASE. THE PSA VALUE SHOULD BE USED IN CONJUNCTION WITH OTHER PERTINENT CLINICAL DIAGNOSTIC PROCEDURES. 85 CHOLESTEROL INTERPRETATION: Desirable: Less than 200 MG/DL Borderline-High Risk: 200-239 MG/DL High-Risk: 240 MG/DL and over 86 HDL INTERPRETATION: Undesirable: High Risk: Less than 40 MG/DL Desirable: Low Risk: Greater than 60 MG/DL 87 LDL INTERPRETATION: Low Risk Optimal Level: LDL Less than 100 MG/DL Near or Above Optimal: LDL 100-129 MG/DL Borderline High Risk: LDL 130-159 MG/DL High Risk: LDL 160-189 MG/DL Very High Risk: LDL Greater than 189 MG/DL 88 ---- RUN DATE: 07/24/08 [facility] NMI LIVE PAGE 1 RUN TIME: 1536 Specimen Inquiry RUN USER: INTERFACE -- Name: GEORGE MARADIAGA [facility]#: [id number] Status: REG REF Re07/23/08 Age/Sex: 63/M Unit#: [id number] Location: [facility] : [birth year] -- Specimen: [id number] SOUT Spec Date: 07/23/[address]: Anjel ashton MD Spec Type: SURGICAL P Received: 07/23/08-1227 Copies to: Joselyn Alexis And nato LUNA SPECIMEN CECAL POLYP HISTORY POST-OP DIAGNOSIS: Cecal polyp CLINICAL INFORMATION: No change in usual bowel habits, negative for blood GROSS DESCRIPTION Specimen is received in formalin labelled George Maradiaga, Cecal Polyp and consists of multiple fragments of em-yellow tissue measuring in aggregate 0.8 x 0.5 x 0.5 cm. Submitted entirely, one cassette. DIAGNOSIS Cecum, polyp, biopsy: A. Tubulovillous adenoma. B. No evidence of high grade dysplasia or malignancy. Signed Electronically by: ALFREDITO HATFIELD 07/24/08 1536 -- -- DEPARTMENT OF PATHOLOGY, [address] [place] [address] [facility] Permit #[id number] Jesus Chino M.D. Director Alfredito Hatfield M.D. Campaign Marketing Manager Dir alo -- 89 Anion gap measurement may be of limited value in the presence of any alkalosis, especially in a combined acid base disorder. . 90 Note change in reference range as of 11/30/07. The change was based on recommendations from the [place] [employer]. 91 Please note change in reference range effective 07 . 92 CHOLESTEROL INTERPRETATION: Desirable: Less than 200 MG/DL Borderline-High Risk: 200-239 MG/DL High-Risk: 240 MG/DL and over 93 HDL INTERPRETATION: Undesirable: High Risk: Less than 40 MG/DL Desirable: Low Risk: Greater than 60 MG/DL 94 LDL INTERPRETATION: Low Risk Optimal Level: LDL Less than 100 MG/DL Near or Above Optimal: LDL 100-129 MG/DL Borderline High Risk: LDL 130-159 MG/DL High Risk: LDL 160-189 MG/DL Very High Risk: LDL Greater than 189 MG/DL 95 FASTING 96 THERAPEUTIC TARGET FOR THE TREATMENT OF DIABETES MELLITUS PATIENTS IS <7% HBA1C, AND IN SELECTIVE PATIENTS <6.0%. PLEASE REFER TO [place] [employer]OCIATION DIABETIC CARE GUIDELINES FOR FURTHER INFORMATION. 97 Anion gap measurement may be of limited value in the presence of any alkalosis, especially in a combined acid base disorder. . 98 Classification: Desirable . 99 Classification: Low . 100 CALCULATED LDL APPROXIMATES THE VALUE OF A DIRECT LDL MEASUREMENT. Classification: Optimal Level . 101 Classification: Desirable . 102 Classification: Low . 103 CALCULATED LDL APPROXIMATES THE VALUE OF A DIRECT LDL MEASUREMENT. Classification: Near or above optimal . 104 Anion gap measurement may be of limited value in the presence of any alkalosis, especially in a combined acid base disorder. . 105 * SERUM LEVELS OF PSA MEASURED USING THE [employer] ACCESS HYBRITECH IMMUNOASSAY SHOULD NOT BE INTERPRETED ABSOLUTE EVIDENCE OF THE PRESENCE OR ABSENCE OF DISEASE. THE PSA VALUE SHOULD BE USED IN CONJUNCTION WITH OTHER PERTINENT CLINICAL DIAGNOSTIC PROCEDURES. 106 Anion gap measurement may be of limited value in the presence of any alkalosis, especially in a combined acid base disorder. . 107 THERAPEUTIC TARGET FOR THE TREATMENT OF DIABETES MELLITUS PATIENTS IS <7% HBA1C, AND IN SELECTIVE PATIENTS <6.0%. PLEASE REFER TO [place] [employer]OC[employer]ATION DIABETIC CARE GUIDELINES FOR FURTHER INFORMATION. 108 Classification: Desirable . 109 CALCULATED LDL APPROXIMATES THE VALUE OF A DIRECT LDL MEASUREMENT. Classification: Optimal Level . 110 Classification: Desirable . 111 CALCULATED LDL APPROXIMATES THE VALUE OF A DIRECT LDL MEASUREMENT. Classification: Near or above optimal . 112 Anion gap measurement may be of limited value in the presence of any alkalosis, especially in a combined acid base disorder. . 113 Run: 05/20/05 0908 [employer] Specimen Inquiry Run User: INTERFACE -- Name: GEORGE MARADIAGA Age/Sex: 60/M Location: [facility]#: [id number] Unit#: [id number] Status: REG REF Room/Bed: Re05/18/05 Disch: Att Dr: Anjel Sales MD. -- Spec #: [id number] Recd: 05/18/05-1251 Status: BRITTNEY Marr #: [id number] SpType: SURGICAL P Sub Dr: Anjel Sales MD. DIAGNOSIS 1) Colon, right, biopsy - A) Tubular adenoma. B) No high grade dysplasia or malignancy. 2) Colon, proximal transverse, biopsy - A) Tubular adenoma. B) No high grade dysplasia or malignancy. 3) Colon, rectal polyp, biopsy - A) Tubular adenoma. B) No high grade dysplasia or malignancy. GROSS DESCRIPTION 1) The specimen is received in formalin labelled "George Maradiaga, Right Colon Polyp" and consists of multiple em soft tissue fragments measuring 0.6 x 0.5 x 0.3 cm. in aggregate. Submitted entirely, one cassette. 2) The specimen is received in formalin labelled "George Birminghamter, Proximal Transverse Colon Polyp" and consists of three em soft tissue fragments measuring 0.6 x 0.2 x 0.2 cm. Submitted entirely, one cassette. 3) The specimen is received in formalin labelled "George Maradiaga, Rectal Polyp" and consists of a single polypoid em soft tissue fragment measuring 0.3 x 0.2 x 0.2 cm. Submitted entirely, one cassette. HISTORY CLINICAL INFORMATION: No current symptoms. SPECIMEN 1) RIGHT COLON POLYP 2) PROXIMAL TRANSVERSE COLON POLYP 3) RECTAL POLYP -- Signed Electronically signed JESUS CHINO MD 05/20/05 -- END OF REPORT 114 * SERUM LEVELS OF PSA MEASURED USING THE [employer] ACCESS HYBRITECH IMMUNOASSAY SHOULD NOT BE INTERPRETED ABSOLUTE EVIDENCE OF THE PRESENCE OR ABSENCE OF DISEASE. THE PSA VALUE SHOULD BE USED IN CONJUNCTION WITH OTHER PERTINENT CLINICAL DIAGNOSTIC PROCEDURES. 115 Classification: Desirable . 116 CALCULATED LDL APPROXIMATES THE VALUE OF A DIRECT LDL MEASUREMENT. Classification: Optimal Level . 117 Anion gap measurement may be of limited value in the presence of any alkalosis, especially in a combined acid base disorder. . 118 Classification: Desirable . 119 CALCULATED LDL APPROXIMATES THE VALUE OF A DIRECT LDL MEASUREMENT. Classification: Optimal Level . 120 * SERUM LEVELS OF PSA MEASURED USING THE [employer] ACCESS HYBRITECH IMMUNOASSAY SHOULD NOT BE INTERPRETED ABSOLUTE EVIDENCE OF THE PRESENCE OR ABSENCE OF DISEASE. THE PSA VALUE SHOULD BE USED IN CONJUNCTION WITH OTHER PERTINENT CLINICAL DIAGNOSTIC PROCEDURES. 121 Classification: Desirable . 122 CALCULATED LDL APPROXIMATES THE VALUE OF A DIRECT LDL MEASUREMENT. Classification: Optimal Level . 123 * SERUM LEVELS OF PSA MEASURED USING THE [employer] ACCESS HYBRITECH IMMUNOASSAY SHOULD NOT BE INTERPRETED ABSOLUTE EVIDENCE OF THE PRESENCE OR ABSENCE OF DISEASE. THE PSA VALUE SHOULD BE USED IN CONJUNCTION WITH OTHER PERTINENT CLINICAL DIAGNOSTIC PROCEDURES. 124 Classification: Desirable . 125 CALCULATED LDL APPROXIMATES THE VALUE OF A DIRECT LDL MEASUREMENT. Classification: Optimal Level . 126 Effective August Please Note CHANGE IN REFERENCE RANGE. . 127 Cholesterol Risk Levels (NIH) Recommended: under 200 mg/dl Borderline : 200-239 mg/dl High Risk : Above 240 mg/dl . 128 LDL Cholesterol Risk Levels (NIH) Recommended: under 130 mg/dl Borderline: 131 - 159 mg/dl High Risk: above 160 mg/dl . 129 LDL/HDL Risk Ratio Levels MALE FEMALE 1/2 X Average 1.00 1.47 Average 3.55 3.22 2 X Average 6.25 5.03 3 X Average 7.99 6.14 . 130 CHOL/HDL Risk Ratio Levels MALE FEMALE 1/2 X Average 3.4 3.3 Average 5.0 4.4 2 X Average 9.5 7.0 3 X Average 24.0 11.0 . Procedures Date CPT Code Description Status 07/29/2015 25719 EKG, at Least 12 Leads w/Interpretation and Report Completed 04/23/2013 53265 EKG, at Least 12 Leads w/Interpretation and Report Completed 10/20/2012 60496 Removal-Impacted Cerumen Completed 04/11/2011 Colonoscopy Completed 11/25/2008 92144 Holter Monitor-24 hrs,w/interpretation Completed 11/25/2008 51415 EKG, at Least 12 Leads w/Interpretation and Report Completed 06/08/2006 29030 Destruction,Benign Lesions, Up To 14 Lesions Completed 02/23/2005 32191 EKG, at Least 12 Leads w/Interpretation and Report Completed 03/19/2003 80193 EKG, at Least 12 Leads w/Interpretation and Report Completed 05/15/2002 55083 EKG, at Least 12 Leads w/Interpretation and Report Completed Encounters Type Date Location Provider CPT E/M Dx Office Visit 08/05/2017 9:00a [place] [address] E11.9 Office Visit 05/05/2017 2:00p [place] [address] R05 Office Visit 03/16/2017 8:00a Main Office RODRIGUEZ Lafleur G0439 Z00.00 Office Visit 01/12/2017 11:00a Main Office RODRIGUEZ Lafleur 97551 E11.9 R05 Office Visit 12/17/2016 11:00a Main Office RODRIGUEZ Lafleur 29547 E11.9 I10 Z11.59 Z12.5 Office Visit 09/22/2015 2:45p Main Office RODRIGUEZ Lafleur 95241 M54.5 Office Visit 08/20/2015 11:00a Main Office RODRIGUEZ Lafleur 68590 R05 H10.89 Office Visit 07/29/2015 3:00p Main Office RODRIGUEZ Lafleur 78603 R42 E11.9 Office Visit 03/14/2015 10:30a Main Office RODRIGUEZ Lafleur 39121 R05 Office Visit 02/24/2015 1:30p Main Office RODRIGUEZ Lafleur G0439 Z00.00 Z12.5 E78.5 R73.9 Z23 Office Visit 06/28/2014 8:45a Main Office RODRIGUEZ Lafleur 95035 272.4 Office Visit 05/09/2014 9:30a Main Office RODRIGUEZ Lafleur 73177 724.5 682.2 Office Visit 02/11/2014 2:15p Main Office Miranda Wolff [facility] 84674 723.1 Office Visit 11/06/2013 4:15p Main Office Diana LedezmaRenny Arriaga [facility] [address]147 386.11 Office Visit 04/23/2013 2:45p Main Office Floresita Umanzor M.D. 86771 386.11 427.69 Office Visit 06/13/2012 9:00a Main Office Miranda Wolff [facility] 76278 V70.0 401.9 V05.8 Office Visit 04/12/2012 12:00p Main Office Joselyn Aguirre M.D. 38680 272.4 401.9 250.00 414.01 780.93 V03.82 Office Visit 03/22/2012 3:45p Main Office Miranda Wolff [facility] 53537 386.11 Office Visit 11/15/2011 8:45a Main Office Miranda Wolff [facility] [address]7869 782.1 724.2 272.4 790.6 Office Visit 06/14/2011 11:30a Main Office Miranda Wolff [facility] [address]261 723.1 Office Visit 06/04/2011 2:30p Main Office Joselyn Aguirre M.D. 15443 782.1 272.0 238.2 Office Visit 04/24/2010 8:00a Main Office Daina YARED [place] 31224 053.29 Office Visit 11/25/2008 4:00p Main Office Joselyn Aguirre M.D. 46150 785.1 Office Visit 08/05/2008 4:00p Main Office Joselyn Aguirre M.D. 39832 723.1 272.0 Office Visit 06/25/2008 8:15a Main Office Joselyn Aguirre M.D. 65135 V70.0 272.0 401.9 427.9 Office Visit 03/13/2008 12:00p Main Office Joselyn Aguirre M.D. 36198 786.2 Office Visit 05/23/2006 12:15p Main Office Joselyn Aguirre M.D. 85480 V70.0 272.0 401.9 425.4 427.32 V76.9 Office Visit 02/23/2005 12:45p Main Office Joselyn Aguirre M.D. 13858 V70.0 272.0 401.9 425.4 Office Visit 06/09/2004 9:00a Main Office Joselyn Aguirre M.D. 34582 401.9 272.0 414.01 425.4 Office Visit 11/04/2003 12:45p Main Office Joselyn Aguirre M.D. 17282 401.9 272.0 Office Visit 03/19/2003 8:45a Main Office Joselyn Aguirre M.D. 87954 272.0 405.19 785.1 Office Visit 11/20/2002 9:30a Main Office Joselyn Aguirre M.D. 90483 405.19 427.32 425.5 272.0 274.9 724.9 Office Visit 11/02/2002 2:00p Main Office Nancy Valadez [facility] 83466 427.32 Office Visit 05/15/2002 7:45a Main Office Joselyn Aguirre M.D. 27417 413.9 709.9 401.9 272.0 V70.0 Office Visit 09/18/2001 9:30a Main Office Nancy Valadez [facility] 99644 274.9 272.0 405.19 724.9 Plan of Care 11/04/2017 - Morris Christie MDE11.9 Type 2 diabetes mellitus without complicationsComments:Primary measures proven to improve life expectancy:Smoking -no, quit 45 years ago. Blood pressure-well controlled on medsMetformin-1000 dailyStatin-ugenyxeqyzwY3o- controlled, 6.8Secondary measures:-Diabetic foot exam annually: Due 07/28-Diabetic retinopathy screen annually: Saw someone May,-Microalbumin yearly: Due 12/27Tertiary measures:-HBV vaccine: refuses, will ask again-Pneumovax: Has had this-Nutritional counseling: better and worse. -PHQ -2: No issues-Alcohol use screening: usually not-exercise program: works outside , no regimen.Follow up:6 [id number] Essential (primary) hypertensionComments: Well to overcontrolled. No lightheadedness with standing.I20.9 Angina pectoris, unspecifiedComments:None in years. Has not used any nitro in years.Follow up:No cards cath for 10+ years, they dont feel necessary.
[2017-11-19 05:44] VITALS: BP 153/77
== END 2017-11-19 05:40 | disposition home or self-care (01) ==
LOC: ED 04:45
DX: H81.10 Benign paroxysmal vertigo, unspecified ear (principal); R11.0 Nausea; I25.10 Atherosclerotic heart disease of native coronary artery without angina pectoris; I10 Essential (primary) hypertension; Z88.8 Allergy status to other drugs, medicaments and biological substances; Z87.891 Personal history of nicotine dependence
CPT/HCPCS: 99282; Q0164

== ENCOUNTER 2020-11-24 23:07 | Inpatient (IN) ==
[2020-11-24 23:55] LABS: ABS Basophils 0.1 10^3/ul (0-0.2); ABS Eosinophils 0.2 10^3/ul (0-0.6); ABS Lymphocytes 2.6 10^3/ul (1.0-4.8); ABS Monocytes 0.8 10^3/ul (0-0.8); Eosinophil % 2.1 %; Hematocrit 36 % (42-52); Hemoglobin 12.5 g/dL (14.0-18.0); Lymphocyte % 27.2 %; Mean Corpuscular HGB Conc 34 g/dL (31-36); Mean Corpuscular Hemoglobin 31 pg (27-31); Mean Corpuscular Volume 89 fL (80-94); Mean Platelet Volume 7.4 fL (7.4-10.4); Platelet Count 217 10^3/uL (150-450); Red Blood Count 4.09 10^6 /uL (4.18-5.48); Red Cell Distribution Width 14 % (10-15); White Blood Count 9.7 10^3/uL (3.5-10.8)
[2020-11-25 00:16] LABS: Albumin 3.9 g/dL (3.2-5.2); Albumin/Globulin Ratio 1.6 (1-3); Calcium 8.3 mg/dL (8.6-10.3); EGFR African American 90.7 (>60); Globulin 2.5 g/dL (2-4); Magnesium 1.9 mg/dL (1.9-2.7); Potassium 4.1 mmol/L (3.5-5.0); Total Bilirubin 0.3 mg/dL (0.2-1.0); Total Protein 6.4 g/dL (6.4-8.9)
[2020-11-25 00:17] LABS: Troponin I 0.01 ng/mL (<0.03)
[2020-11-25 00:18] LABS: Activated Partial Thrombo Time 33.6 seconds (26.0-38.0); INR 1.66 (0.86-1.15)
[2020-11-25 02:26] LABS: Troponin I 0.11 ng/mL (<0.03)
[2020-11-25] MEDS ORDERED: Heparin - STEMI 5,000 UNITS/ML 1 ml VIAL IV ONE (03:13)
[2020-11-25] MEDS ORDERED: Nitroglycerin 0.6 mg TAB SL PRN (03:18)
[2020-11-25 03:50] LABS: ABS Basophils 0.1 10^3/ul (0-0.2); ABS Eosinophils 0.2 10^3/ul (0-0.6); ABS Lymphocytes 2.8 10^3/ul (1.0-4.8); ABS Monocytes 0.9 10^3/ul (0-0.8); ABS Neutrophils 7.8 10^3/ul (1.5-7.7); Eosinophil % 1.3 %; Hematocrit 37 % (42-52); Hemoglobin 12.9 g/dL (14.0-18.0); Lymphocyte % 23.6 %; Mean Corpuscular HGB Conc 35 g/dL (31-36); Mean Corpuscular Hemoglobin 30 pg (27-31); Mean Corpuscular Volume 88 fL (80-94); Mean Platelet Volume 7.2 fL (7.4-10.4); Platelet Count 243 10^3/uL (150-450); Red Blood Count 4.23 10^6 /uL (4.18-5.48); Red Cell Distribution Width 14 % (10-15); White Blood Count 11.9 10^3/uL (3.5-10.8)
[2020-11-25] MEDS ORDERED: Heparin 5000 UNITS/ML 1 mL VIAL IV SCH (04:00)
[2020-11-25] MEDS: Heparin DRIP 25,000 UNITS BAG 25,000 UNITS/500 ML BAG IV SCH (04:15)
[2020-11-25 04:19] LABS: EGFR African American 95.2 (>60); EGFR Non-African American 78.7 (>60)
[2020-11-25] MEDS ORDERED: Metoprolol Tartrate 5 mg VIAL 5 ml VIAL (1 mg/ml) IV PRN (04:28)
[2020-11-25] MEDS: cefTRIAXone 1 gm/50 mL NS BAG 1 GM/50 ML BAG IVPB SCH (04:57)
[2020-11-25 04:59] LABS: Rapid COVID-19 Molecular Undetected (Undetected)
[2020-11-25 06:05] LABS: Troponin I 0.22 ng/mL (<0.03)
[2020-11-25 08:03] LABS: Calcium 8.3 mg/dL (8.6-10.3); Magnesium 1.9 mg/dL (1.9-2.7); Potassium 4.6 mmol/L (3.5-5.0)
[2020-11-25 11:10] LABS: Troponin I 0.33 ng/mL (<0.03)
[2020-11-25 16:57] LABS: Troponin I 0.42 ng/mL (<0.03)
[2020-11-25 19:47] LABS: Troponin I 0.49 ng/mL (<0.03)
[2020-11-25 22:31] LABS: Troponin I 0.93 ng/mL (<0.03)
[2020-11-26] MEDS: NS 0.9% 1000 ml BAG 1,000 ML IV SCH ×2 (01:42→10:39)
[2020-11-26] MEDS: Heparin DRIP 25,000 UNITS BAG 25,000 UNITS/500 ML BAG IV SCH (01:45)
[2020-11-26] MEDS: cefTRIAXone 1 gm/50 mL NS BAG 1 GM/50 ML BAG IVPB SCH (05:31)
[2020-11-26 05:39] LABS: ABS Basophils 0.1 10^3/ul (0-0.2); ABS Eosinophils 0.1 10^3/ul (0-0.6); ABS Lymphocytes 3.1 10^3/ul (1.0-4.8); ABS Monocytes 1.1 10^3/ul (0-0.8); Hematocrit 36 % (42-52); Hemoglobin 12.5 g/dL (14.0-18.0); Lymphocyte % 23.4 %; Mean Corpuscular HGB Conc 34 g/dL (31-36); Mean Corpuscular Hemoglobin 30 pg (27-31); Mean Corpuscular Volume 88 fL (80-94); Mean Platelet Volume 6.8 fL (7.4-10.4); Nucleated Red Blood Cells % 0.1; Platelet Count 211 10^3/uL (150-450); Red Blood Count 4.14 10^6 /uL (4.18-5.48); Red Cell Distribution Width 14 % (10-15); White Blood Count 13.4 10^3/uL (3.5-10.8)
[2020-11-26 05:56] LABS: Anion Gap 7 mmol/L (2-11); Blood Urea Nitrogen 12 mg/dL (6-24); CO2 Carbon Dioxide 23 mmol/L (22-32); Calcium 8.8 mg/dL (8.6-10.3); Chloride 104 mmol/L (101-111); EGFR African American 100.1 (>60); EGFR Non-African American 82.7 (>60); Glucose 168 mg/dL (70-100); Potassium 4.2 mmol/L (3.5-5.0); Sodium 134 mmol/L (135-145)
[2020-11-26 06:11] LABS: Troponin I 0.93 ng/mL (<0.03)
[2020-11-26] MEDS ORDERED: fentaNYL 100 mcg/2 ml 50 MCG/ML VIAL ONE (07:39)
[2020-11-26] MEDS ORDERED: VERAPAMIL 2.5 MG/ML 2 ML VIAL ** 5 mg/2 ml ONE (07:39)
[2020-11-26] MEDS ORDERED: Midazolam 5 mg/5 ml VIAL 1 mg/ml 5 ml VIAL (5 mg) ONE (07:39)
[2020-11-26] MEDS ORDERED: Heparin 1,000 UNIT/ML 10 ml (10,000 UNITS) CATHLAB/DIALYSIS ONE ×2 (07:39→09:11)
[2020-11-26] MEDS ORDERED: Iohexol 350 (CONTRAST) 200 ML MDV IV ONE ×3 (07:40→09:44)
[2020-11-26] MEDS ORDERED: Lidocaine 1% VIAL 10 MG/ML VIAL ONE (07:40)
[2020-11-26] MEDS ORDERED: nitroGLYCERIN DRIP 25,000 MCG/250 ML BTL ONE (07:40)
[2020-11-26] MEDS ORDERED: Heparin 2 UNITS/ML 1000 mls 2,000 ML IV ONE (07:40)
[2020-11-26] MEDS ORDERED: niCARdipine 0.1MG/ML IVPREMIX 20 MG/200 ML BAG IV ONE (08:26)
[2020-11-26] MEDS ORDERED: Dextrose 50% Syringe 50 ml 25 GM/50 ML SYRINGE IV PUSH PRN (09:23)
[2020-11-26] MEDS ORDERED: NS 0.9% 1000 ml BAG 1,000 ML IV SCH (10:30)
[2020-11-26 12:02] LABS: Creatine Kinase 56 U/L (10-223)
[2020-11-26 12:05] LABS: CKMB ng/mL 6.9 ng/mL (0.6-6.3)
[2020-11-26 12:25] LABS: Troponin I 0.72 ng/mL (<0.03)
[2020-11-26 12:39] LABS: Glucose 173 mg/dL (70-100)
[2020-11-26 18:45] LABS: Creatine Kinase 51 U/L (10-223)
[2020-11-26 18:50] LABS: CKMB ng/mL 5.2 ng/mL (0.6-6.3)
[2020-11-26 18:58] LABS: Troponin I 0.54 ng/mL (<0.03)
[2020-11-27] MEDS: cefTRIAXone 1 gm/50 mL NS BAG 1 GM/50 ML BAG IVPB SCH (05:09)
[2020-11-27 05:30] LABS: ALT 17 U/L (7-52); Albumin 3.9 g/dL (3.2-5.2); Albumin/Globulin Ratio 1.6 (1-3); Alkaline Phosphatase 63 U/L (35-149); Blood Urea Nitrogen 12 mg/dL (6-24); CO2 Carbon Dioxide 20 mmol/L (22-32); Calcium 8.4 mg/dL (8.6-10.3); Chloride 105 mmol/L (101-111); Cholesterol 121 mg/dL; EGFR African American 96.4 (>60); EGFR Non-African American 79.6 (>60); Globulin 2.5 g/dL (2-4); Glucose 138 mg/dL (70-100); HDL Cholesterol 33.2 mg/dL; LDL Cholesterol 68 mg/dL; Sodium 134 mmol/L (135-145); Total Protein 6.4 g/dL (6.4-8.9); Triglycerides 97 mg/dL
[2020-11-27 05:33] LABS: Anion Gap 9 mmol/L (2-11)
[2020-11-27 08:06] LABS: Magnesium 1.7 mg/dL (1.9-2.7)
[2020-11-27 08:38] LABS: Phosphorus 2.6 mg/dL (2.5-5.0)
[2020-11-27 14:49] VITALS: BP 165/99
== END 2020-11-27 14:48 | disposition home or self-care (01) | DRG 247 ==
LOC: ED 23:07 → EDHOLD 11-25 03:09 → SUATTDRO 11-25 03:09 → MEDTELE 11-25 08:53 → ICU 11-26 10:30
PROVIDERS: ADMIT Internal Medicine; ATTEND Surgery Surgical Critical Care